=== PATIENT | female | born 1950 | race Caucasian/White ===

== ENCOUNTER 2017-03-17 13:03 | Observation (INO) ==
[2017-03-17] MEDS ORDERED: 0.9 % Sodium Chloride 1,000 ML IVC ONE (13:14)
--- NOTE | 2017-03-17 13:16 | Emergency Department Note ---
Disposition Clinical Impression: Intraoperative injury of vein, Axillary vein injury, Renal insufficiency, Dehydration, Hypotension, Diabetes mellitus, UTI (urinary tract infection) Disposition: Admitted As Inpatient Referrals: Garrett Judd DO [Primary Care Provider] - Forms: ED Satisfaction Letter General Adult HPI - General Chief complaint: ED Dizziness Stated complaint: Low BP Time Seen by Provider: 03/17/17 13:06 Source: patient Limitations: no limitations - History of Present Illness HPI Narrative: Extremity 6-year-old female was getting a breast biopsy in radiology, the patient's blood pressure dropped and she became diaphoretic and was poorly responsive. The patient is noted to be diabetic, Accu-Chek at that time did not show hypoglycemia. The patient was brought to the emergency department via radiology staff. The patient reports she was feeling well prior to the biopsy. She had no acute complaints and was in her usual state of health. The patient denies headache neck pain chest pain shortness of breath abdominal pain acute back pain slurred speech or difficulty moving the arms or legs independently. There is no history of skin rash urinary symptoms or any other concern. The patient feels completely well now apart from some right arm swelling and right breast area swelling.. She states she pretty much remembers the entire event. No seizure-like activity described. The radiologist was concerned because there was possible hematoma in the breast and/or right upper extremity. Her is been no coldness weakness numbness or blueness of the arms or legs. Pain Scale: 9 - Related Data Home Medications Medication Instructions Recorded Confirmed Amlodipine [Norvasc] 5 mg PO DAILY 12/07/16 03/17/17 Aspirin 81 mg PO DAILY 12/07/16 03/17/17 Atorvastatin [Lipitor] 40 mg PO HS 12/07/16 03/17/17 Lisinopril [Zestril] 40 mg PO DAILY 12/07/16 03/17/17 Metformin [Glucophage] 500 mg PO BIDWM 12/07/16 03/17/17 Omeprazole [PriLOSEC] 40 mg PO DAILY 12/07/16 03/17/17 Sertraline [Zoloft] 50 mg PO DAILY 12/07/16 03/17/17 Acetaminophen/Diphenhydramine 1 tab PO HS PRN 01/05/17 03/17/17 [Acetaminophen Pm Caplet] Allergies Allergy/AdvReac Type Severity Reaction Status Date / Time No Known Allergies Allergy Verified 03/17/17 15:27 All systems ED: reviewed and negative except as stated. Past Medical History - Past Medical History Medical history: Reports: CVA, diabetes, hypertension Psychiatric history: Reports: no psych history - Social History Smoking Status: Current every day smoker Smokeless Tobacco Status: No Alcohol use: Reports: none Drug use: Reports: none Physical Exam - General Limitations: no limitations General appearance: alert, in no apparent distress - Head Head exam: atraumatic, normocephalic, normal inspection - Eye Eye exam: Present: normal appearance, PERRL, EOMI - ENT ENT exam: normal exam, normal oropharynx, mucous membranes moist, TM's normal bilaterally, normal external ear exam - Neck Neck exam: Present: normal inspection, full ROM, trachea midline. Absent: tenderness - Chest Chest inspection: Present: symmetric chest wall rise. Absent: tenderness - Respiratory Respiratory exam: Present: normal lung sounds bilaterally. Absent: respiratory distress, accessory muscle use, prolonged expiratory phase - Cardiovascular Cardiovascular exam: Present: regular rate, normal rhythm, normal heart sounds - Abdominal Exam Abdominal exam: Present: soft, Non-Tender, normal bowel sounds. Absent: tenderness, distention, guarding, rebound, rigidity, pulsatile mass - Extremities Exam Extremities exam: Present: full ROM, normal capillary refill, other (All 4 extremities warm and well-perfused and supple. Mild edema in the humeral area, radial pulses are bounding and palpable. There is no evidence of acute bony or joint pathology or neurovascular or neuromuscular compromise.). Absent: tenderness, pedal edema, joint swelling, calf tenderness - Expanded Lower Extremity Exam Lower leg exam: Absent: Homans' sign Neurovascular/Tendon exam: Present: normal capillary refill. Absent: pulse deficit, motor deficit, sensory deficit, tendon deficit, extremity cold to touch , pallor - Back Exam Back exam: Present: normal inspection, full ROM. Absent: tenderness, CVA tenderness (R), CVA tenderness (L), vertebral tenderness - Neurological Exam Neurological exam: Present: alert, oriented X3, CN II-XII intact. Absent: motor sensory deficit - Psychiatric Psychiatric exam: Present: normal affect, normal mood - Skin Skin exam: Present: warm, dry, intact, normal color. Absent: rash, cyanosis, diaphoresis, erythema, pallor, mottled Course Vital Signs Temperature 97.6 F 05/04/17 13:06 Pulse Rate 86 03/17/17 13:06 Respiratory Rate 16 03/17/17 13:06 Blood Pressure 107/60 03/17/17 13:06 O2 Sat by Pulse Oximetry 99 03/17/17 13:06 Temperature 97.6 F 03/17/17 13:06 Pulse Rate 73 03/17/17 15:03 Respiratory Rate 16 03/17/17 15:03 Blood Pressure 123/63 03/17/17 15:03 O2 Sat by Pulse Oximetry 98 03/17/17 15:03 Oxygen Delivery Oxygen Delivery Room Air Medical Decision Making - MDM Narrative Medical decision making narrative: The patient had a hypotensive event which may have been vasovagal in nature, alternatively she could just simply be dehydrated secondary to nothing by mouth status since last night. Her CT studies indicate an axillary vein injury without active extravasation. No arterial injury identified. The patient appears to be stable. She was given fluids. The radiologist discussed the case with the interventional radiologist who did not recommend immediate hemostatic procedure. Based on the patient's hypotension, hematoma, apparent venous injury, I thought be appropriate to admit the patient the hospital for observation. We will admit the patient to the hospitalist service and recommended serial CBCs to ensure no significant persistent bleeding is demonstrated. The patient is agreeable. She is currently stable pending admission for further evaluation and management. Dr. Spangler/Vascular was consulted who will act as the performance management consultant, he recommends discontinuing aspirin. - Lab Data Lab results reviewed: Yes I reviewed the patient's lab results. Result diagrams: 03/17/17 13:51 03/17/17 13:51 Lab Results 03/17/17 03/17/17 03/17/17 Range/Units 13:34 13:51 13:51 WBC 12.8 H (4.3-11.1) K/mcL RBC 4.57 (3.82-4.97) M/mcL Hgb 13.1 (11.5-15.4) g/dL Hct 40.6 (35.3-44.9) % MCV 88.8 (83.0-100.0) fL MCH 28.7 (28.0-33.3) pg MCHC 32.3 (31.6-35.5) g/dL RDW 13.7 (11.5-14.5) % Plt Count 326 (140-400) K/mcL MPV 9.3 L (9.4-12.4) fL Immature Gran % 1.0 (0-4) % Seg Neutrophils % 66.3 % Lymphocytes % 24.0 % Monocytes % 5.0 % Eosinophils % 2.7 % Basophils % 1.0 % Neutrophils # 8.5 (1.6-8.9) K/mcL Lymphocytes # 3.1 (0.6-4.6) K/mcL Monocytes # 0.6 (0.0-1.3) K/mcL Eosinophils # 0.4 (0.0-0.6) K/mcL Basophils # 0.1 (0.0-0.2) K/mcL PT 10.9 (9.4-12.1) Seconds INR 1.0 APTT 30.1 (26.0-36.0) Seconds Sodium (136-145) mEq/L Potassium (3.5-4.5) mEq/L Chloride (98-109) mEq/L Carbon Dioxide (19-29) mEq/L BUN (7-20) mg/dL Creatinine (0.57-1.11) mg/dL Est GFR ( Amer) (> 60) Est GFR (Non-Af Amer) (> 60) BUN/Creatinine Ratio (6-26) Glucose (70-99) mg/dL Calculated Osmolality (280-300) Calcium (8.6-10.8) mg/dL Total Bilirubin (0.2-1.2) mg/dL Direct Bilirubin (0.0-0.5) mg/dL Indirect Bilirubin (0.0-1.2) mg/dL AST (5-34) Units/L ALT (0-55) Units/L Alkaline Phosphatase (38-126) Units/L Troponin I (0-0.03) ng/mL C-Reactive Protein (Less than 5) mg/L Serum Total Protein (6.0-8.3) g/dL Albumin (3.5-5.0) g/dL Globulin (2.4-3.5) g/dL Albumin/Globulin Ratio (1.1-2.2) Urine Color Yellow (Yellow) Urine Clarity Clear (Clear) Urine pH 6.5 (5.0-8.0) pH Units Ur Specific [place] 1.021 (1.010-1.025) Urine Protein 100 H (Neg-Trace) mg/dL Urine Glucose (UA) Normal (Normal) mg/dL Urine Ketones Negative (Negative) mg/dL Urine Blood Negative (Negative) Urine Nitrite Negative (Negative) Urine Bilirubin Negative (Negative) Urine Urobilinogen Normal (Normal) mg/dL Ur Leukocyte Esterase Small H (Negative) Urine Microscopic RBC 0-3 (0-3) per hpf Urine Microscopic WBC 5-15 H (0-3) per hpf Ur Squamous Epith Cells Many H (None-Few) per lpf Urine Bacteria Few (None-Few) per hpf Hyaline Casts None Seen (None-Few) per lpf Ur Culture Indicated? YES A (NO) 03/17/17 03/17/17 03/17/17 Range/Units 13:51 13:51 13:51 WBC (4.3-11.1) K/mcL RBC (3.82-4.97) M/mcL Hgb (11.5-15.4) g/dL Hct (35.3-44.9) % MCV (83.0-100.0) fL MCH (28.0-33.3) pg MCHC (31.6-35.5) g/dL RDW (11.5-14.5) % Plt Count (140-400) K/mcL MPV (9.4-12.4) fL Immature Gran % (0-4) % Seg Neutrophils % % Lymphocytes % % Monocytes % % Eosinophils % % Basophils % % Neutrophils # (1.6-8.9) K/mcL Lymphocytes # (0.6-4.6) K/mcL Monocytes # (0.0-1.3) K/mcL Eosinophils # (0.0-0.6) K/mcL Basophils # (0.0-0.2) K/mcL PT (9.4-12.1) Seconds INR APTT (26.0-36.0) Seconds Sodium 140 (136-145) mEq/L Potassium 4.2 (3.5-4.5) mEq/L Chloride 109 (98-109) mEq/L Carbon Dioxide 24 (19-29) mEq/L BUN 28 H (7-20) mg/dL Creatinine 1.33 H (0.57-1.11) mg/dL Est GFR ( Amer) 49 L (> 60) Est GFR (Non-Af Amer) 40 L (> 60) BUN/Creatinine Ratio 21 (6-26) Glucose 155 H (70-99) mg/dL Calculated Osmolality 299 (280-300) Calcium 9.3 (8.6-10.8) mg/dL Total Bilirubin 0.4 (0.2-1.2) mg/dL Direct Bilirubin 0.2 (0.0-0.5) mg/dL Indirect Bilirubin 0.2 (0.0-1.2) mg/dL AST 14 (5-34) Units/L ALT 26 (0-55) Units/L Alkaline Phosphatase 93 (38-126) Units/L Troponin I 0.01 (0-0.03) ng/mL C-Reactive Protein 3 (Less than 5) mg/L Serum Total Protein 6.6 (6.0-8.3) g/dL Albumin 3.4 L (3.5-5.0) g/dL Globulin 3.2 (2.4-3.5) g/dL Albumin/Globulin Ratio 1.1 (1.1-2.2) Urine Color (Yellow) Urine Clarity (Clear) Urine pH (5.0-8.0) pH Units Ur Specific [place] (1.010-1.025) Urine Protein (Neg-Trace) mg/dL Urine Glucose (UA) (Normal) mg/dL Urine Ketones (Negative) mg/dL Urine Blood (Negative) Urine Nitrite (Negative) Urine Bilirubin (Negative) Urine Urobilinogen (Normal) mg/dL Ur Leukocyte Esterase (Negative) Urine Microscopic RBC (0-3) per hpf Urine Microscopic WBC (0-3) per hpf Ur Squamous Epith Cells (None-Few) per lpf Urine Bacteria (None-Few) per hpf Hyaline Casts (None-Few) per lpf Ur Culture Indicated? (NO) - Radiology Data Radiology results reviewed: Yes I reviewed the patient's radiology results.
[2017-03-17 14:05] LABS: Basophils # 0.1 K/mcL (0.0-0.2); Eosinophils # 0.4 K/mcL (0.0-0.6); Eosinophils % 2.7 %; Hematocrit 40.6 % (35.3-44.9); Hemoglobin 13.1 g/dL (11.5-15.4); Lymphocytes # 3.1 K/mcL (0.6-4.6); Mean Corpuscular HGB Conc 32.3 g/dL (31.6-35.5); Mean Corpuscular Hemoglobin 28.7 pg (28.0-33.3); Mean Corpuscular Volume 88.8 fL (83.0-100.0); Mean Platelet Volume 9.3 fL (9.4-12.4); Monocytes # 0.6 K/mcL (0.0-1.3); Neutrophils # 8.5 K/mcL (1.6-8.9); Platelet Count 326 K/mcL (140-400); Red Blood Count 4.57 M/mcL (3.82-4.97); Red Cell Distribution Width 13.7 % (11.5-14.5); Segmented Neutrophils % 66.3 %
[2017-03-17 14:11] LABS: Prothrombin Time 10.9 Seconds (9.4-12.1)
[2017-03-17 14:13] LABS: Activated Partial Thrombo Time 30.1 Seconds (26.0-36.0)
[2017-03-17 14:16] LABS: Albumin 3.4 g/dL (3.5-5.0); Albumin/Globulin Ratio 1.1 (1.1-2.2); Bilirubin,Direct 0.2 mg/dL (0.0-0.5); Bilirubin,Indirect 0.2 mg/dL (0.0-1.2); Bilirubin,Total 0.4 mg/dL (0.2-1.2); Calcium 9.3 mg/dL (8.6-10.8); Globulin 3.2 g/dL (2.4-3.5); Potassium 4.2 mEq/L (3.5-4.5); Total Protein 6.6 g/dL (6.0-8.3)
[2017-03-17 15:11] LABS: Bilirubin,Urine Negative (Negative); Blood,Urine Negative (Negative); Clarity,Urine Clear (Clear); Color,Urine Yellow (Yellow); Glucose,Urine (UA) Normal (Normal); Ketones,Urine Negative (Negative); Leukocyte Esterase,Urine Small (Negative); Nitrite,Urine Negative (Negative); PH,Urine 6.5 pH Units (5.0-8.0); Protein,Urine 100 mg/dL (Neg-Trace); Specific Gravity,Urine 1.021 (1.010-1.025); Urobilinogen,Urine Normal (Normal)
[2017-03-17 15:14] LABS: Bacteria,Urine Few per hpf (None-Few); Hyaline Casts,Urine None Seen per lpf (None-Few); RBC,Urine 0-3 per hpf (0-3); Squamous Epithelial Cell,Urine Many per lpf (None-Few)
[2017-03-17] MEDS ORDERED: *HR* HYDROcodone/Acet 5/325 mg TABLET PO ONE (18:42)
--- NOTE | 2017-03-17 18:50 | Vascular/Endovasc Consult Note ---
Date of Encounter: 03/17/17 Time of Encounter: 18:25 Assessment and Plan (1) Axillary vein injury Current Visit: Yes Status: Acute The patient underwent a breast biopsy which was complicated by a right axillary vein injury with hematoma formation. The patient is now hemodynamically stable and comfortable. Exam reveals right axillary and chest ecchymosis with hematoma formation. Recommend bedrest tonight. recheck hemoglobin. Hold Aspirin and any anticaogulation. Will continue to follow patient. Qualifiers: Encounter type: initial encounter Laterality: right Qualified Code(s): S45.201A - Unspecified injury of axillary or brachial vein, right side, initial encounter (2) Essential hypertension Current Visit: Yes Status: Chronic (3) Diabetes mellitus Current Visit: Yes Status: Chronic She was counseled regarding atherosclerotic risk factor reduction. Qualifiers: Diabetes mellitus type: type 2 Diabetes mellitus complication status: with unspecified complications Diabetes mellitus mcfp insulin use: without intermodal dispatcher use Qualified Code(s): E11.8 - Type 2 diabetes mellitus with unspecified complications (4) Tobacco abuse Current Visit: Yes Status: Chronic She was counseled regarding smoking cessation. - History of Present Illness Consult date: 03/17/17 Requesting physician: Kenneth Castañeda Consult reason: Right axillary vein injury Chief complaint: Right axillary hematoma History of present illness: Ms. Gomez is a 66 year old female who was found to have a right breast mass. SHe has a history of diabetes and hypertension. She underwent a right breast biopsy and developed significant pain and swelling. She underwent a CT and was found to have a large hematoma with possible axillary vein injury. The patient was admitted and vascular surgery was consulted for further evaluation. The patient reports that her arm and chest are sore, but the pain is stable. She denies any increased swelling since admission. She denies any chest pain or shortness of breath. Past Med Surg Social Fam HX - Past Medical History Medical history: CVA, diabetes, hypertension Psychiatric history: no psych history - Social History Smoking Status: Current every day smoker Smokeless Tobacco Status: No Alcohol use: none Drug use: none - Family History Mother Living Status: Age at : 65 Cause of : diabetic coma Hx Family Endocrine Disorder: Yes Hx Family Medical Disorders: Yes Medications and Allergies Amlodipine [Norvasc] 5 mg PO DAILY 12/07/16 [History] Aspirin 81 mg PO DAILY 12/07/16 [History] Atorvastatin [Lipitor] 40 mg PO HS 12/07/16 [History] Lisinopril [Zestril] 40 mg PO DAILY 12/07/16 [History] Metformin [Glucophage] 500 mg PO BIDWM 12/07/16 [History] Omeprazole [PriLOSEC] 40 mg PO DAILY 12/07/16 [History] Sertraline [Zoloft] 50 mg PO DAILY 12/07/16 [History] Acetaminophen/Diphenhydramine [Acetaminophen Pm Caplet] 1 tab PO HS PRN [History] Allergies No Known Allergies Allergy (Verified 03/17/17 15:27) All Systems Review: A 10-system review of systems was performed and is negative for pertinent findings except as documented above in the HPI. Exam Vital Signs, Last 4 Hours Temp Pulse Resp BP Pulse Ox 03/17/17 17:50 97.6 F 81 22 129/76 96 03/17/17 17:17 16 140/77 General: Present: Conversant, No Apparent Distress, Well developed HEENT: Present: Atraumatic, Trachea midline, Pupils equal Neck: Absent: JVD, Lymphadenopathy, Left Carotid bruit, Right Carotid bruit Cardiac: Present: Reg Rate and Rhythm, Normal S1 and S2 Lungs: Present: Normal Breath Sounds, No Wheeze, Rales, Rhonchi Neuro: Present: Alert and responsive, No focal deficits noted, Motor nerves grossly intact, Sensory nerves grossly intact Abdomen: Present: Soft, Non-tender. Absent: Masses Vascular: Present: Normal capillary refill, Pulse, normal, Edema, Other (Right axillary and chest wall ecchymosis with hematoma). Absent: Cyanosis Consult Discharge Plan - Plan Referrals: Garrett Judd DO [Primary Care Provider] - 03/28/17 2:30 pm
--- NOTE | 2017-03-17 20:23 | Internal Med History&Physical ---
Date of Encounter: 03/17/17 Time of Encounter: 20:14 Assessment and Plan (1) Axillary vein injury Current visit: Yes Status: Acute Patient has extravasation of blood due to axillary vein injury. Swelling in right upper arm. No signs of acute ischemia. Distal pulses and capillary circulation intact. No evidence of compartment syndrome. Follow H and H. DC aspirin. Vascular surgery have already evaluated the patient. Qualifiers: Encounter type: initial encounter Laterality: right Qualified Code(s): S45.201A - Unspecified injury of axillary or brachial vein, right side, initial encounter (2) Hypotension Current visit: Yes Status: Acute Likely vasovagal from pain. Hydrate currently normotensive. Qualifiers: Qualified Code(s): I95.9 - Hypotension, unspecified (3) Diabetes mellitus Current visit: Yes Status: Acute SSI Qualifiers: Qualified Code(s): E11.9 - Type 2 diabetes mellitus without complications (4) Urinary tract infection Current visit: Yes Status: Acute Urine sample is contaminated. Check urine culture. Hold off antibiotics. Qualifiers: Qualified Code(s): N39.0 - Urinary tract infection, site not specified (5) ELÍAS (acute kidney injury) Current visit: Yes Status: Acute Hydration Internal Medicine - H&P: HPI Chief complaint: lightheadedness History of present illness: Ms. Gomez is a 66 year old female who was having a biopsy for breast mass today developed lightheadedness during the procedure done by interventional radiology. Patient had injury of the right axillary vein and had a drop in her BP and she felt lightheaded. No syncope. She had swelling and pain in the right axillary area. Still has intact sensation and movement. Denies any coldness or significant swelling of the arm. She became hemodynamically stable shortly afterwards. CT scan showed significant extravasation int he right axillary area. Patient is on aspirin 81 mg but no other antiplatelet or anticoagulant medications. NO chest pain. No fever or chills Past Med Surg Social Fam HX - Past Medical History Medical history: CVA, diabetes, hypertension Psychiatric history: no psych history - Social History Smoking Status: Current every day smoker Smokeless Tobacco Status: No Alcohol use: none Drug use: none - Family History Mother Living Status: Age at : 65 Cause of : diabetic coma Hx Family Endocrine Disorder: Yes Hx Family Medical Disorders: Yes Internal Medicine - H&P: Meds Amlodipine [Norvasc] 5 mg PO DAILY 01/24/17 [History] Aspirin 81 mg PO DAILY 12/07/16 [History] Atorvastatin [Lipitor] 40 mg PO HS 12/07/16 [History] Lisinopril [Zestril] 40 mg PO DAILY 12/07/16 [History] Metformin [Glucophage] 500 mg PO BIDWM 12/07/16 [History] Omeprazole [PriLOSEC] 40 mg PO DAILY 12/07/16 [History] Sertraline [Zoloft] 50 mg PO DAILY 12/07/16 [History] Acetaminophen/Diphenhydramine [Acetaminophen Pm Caplet] 1 tab PO HS PRN [History] Allergies No Known Allergies Allergy (Verified 03/17/17 15:27) All Systems PM: A 10-system review of systems was performed and is negative for pertinent findings except as documented above in the HPI. Review of systems: 10 point ROS is negative except for HPI - Constitutional Vitals: Temp Pulse Resp BP Pulse Ox 97.6 F 81 22 129/76 96 03/17/17 17:50 03/17/17 17:50 03/17/17 17:50 03/17/17 17:50 03/17/17 17:50 Exam: general: patient is A and O not in distress Cardiac: Normal S1, S2, no additional sounds or murmurs Chest: Clear Right upper extremity: Swelling in upper right arm compared to left. Arm not tense. Distal pulsations and capillary circulation are intact. LE: lax calf muscles Internal Med - H&P Results - Labs CBC & Chem 7: 03/17/17 13:51 03/17/17 13:51
[2017-03-17] MEDS: 0.9 % Sodium Chloride 1,000 ML IVC SCH (21:58)
[2017-03-18] MEDS: *HR* Morphine 2 MG/ML SYRINGE IVP PRN ×3 (02:57→22:12)
[2017-03-18 05:57] LABS: Basophils # 0.1 K/mcL (0.0-0.2); Basophils % 0.9 %; Eosinophils # 0.3 K/mcL (0.0-0.6); Eosinophils % 2.6 %; Hematocrit 33.3 % (35.3-44.9); Immature Granulocytes % 0.7 % (0-4); Lymphocytes # 3.3 K/mcL (0.6-4.6); Lymphocytes % 28.1 %; Mean Corpuscular HGB Conc 32.4 g/dL (31.6-35.5); Mean Corpuscular Volume 89.3 fL (83.0-100.0); Mean Platelet Volume 9.5 fL (9.4-12.4); Monocytes # 0.7 K/mcL (0.0-1.3); Monocytes % 5.8 %; Neutrophils # 7.2 K/mcL (1.6-8.9); Platelet Count 273 K/mcL (140-400); Red Blood Count 3.73 M/mcL (3.82-4.97); Segmented Neutrophils % 61.9 %
[2017-03-18 05:58] LABS: Hemoglobin 10.8 g/dL (11.5-15.4)
[2017-03-18 06:15] LABS: BUN/Creatinine Ratio 25 (6-26); Blood Urea Nitrogen 20 mg/dL (7-20); Calcium 8.4 mg/dL (8.6-10.8); Carbon Dioxide 22 mEq/L (19-29); Chloride 112 mEq/L (98-109); Glucose 94 mg/dL (70-99); Magnesium 1.7 mg/dL (1.6-2.6); Osmolality,Calculated 290 (280-300); Potassium 3.9 mEq/L (3.5-4.5); Sodium 139 mEq/L (136-145); eGFR For African Americans > 60 (> 60); eGFR For Non-African Americans > 60 (> 60)
[2017-03-18] MEDS ORDERED: amLODIPine 5 MG TABLET PO SCH (09:00)
[2017-03-18] MEDS: 0.9 % Sodium Chloride 1,000 ML IVC SCH (10:14)
[2017-03-18] MEDS: Insulin LISPRO 300 UNITS/3 ML VIAL SQ SCH ×3 (10:15→17:57)
--- NOTE | 2017-03-18 13:53 | Internal Med Progress Note ---
<Aba Lynne - Last Filed: 03/18/17 14:42> Date of Encounter: 03/18/17 Time of Encounter: 10:30 - Assessment and plan (1) Axillary vein injury Current Visit: Yes Status: Acute Assessment and plan: patient suffered injury to right axillary vein during breast mass biopsy. Upper extremity CT shoed subcutaneous pronounced edema through soft tissues of left axilla along chest wall involving left pec minor, large hematoma. there was irregularity of right axillary vein seen. Plan: appreciate vascular surgery recommendations. patient is stable now. will re check H/H q12 hours. Qualifiers: Encounter type: initial encounter Laterality: right Qualified Code(s): S45.201A - Unspecified injury of axillary or brachial vein, right side, initial encounter (2) Hypotension Current Visit: Yes Status: Resolved Assessment and plan: resolved with fluids. continue to monitor. Qualifiers: Hypotension type: unspecified hypotension type Qualified Code(s): I95.9 - Hypotension, unspecified (3) Diabetes mellitus Current Visit: Yes Status: Acute Assessment and plan: ADA diet ACHS accuchecks low dose sliding scale. Qualifiers: Diabetes mellitus type: type 2 Diabetes mellitus complication status: with unspecified complications Diabetes mellitus gauntlet pairer insulin use: without mcfp use Qualified Code(s): E11.8 - Type 2 diabetes mellitus with unspecified complications (4) UTI (urinary tract infection) Current Visit: Yes Status: Acute Assessment and plan: urinalysis shows infection patient is asymptomatic, no antibiotics at this time. Qualifiers: Urinary tract infection type: site unspecified Hematuria presence: without hematuria Qualified Code(s): N39.0 - Urinary tract infection, site not specified (5) ELÍAS (acute kidney injury) Current Visit: Yes Status: Resolved Assessment and plan: resolved with fluids. continue to monitor. (6) DVT prophylaxis Current Visit: Yes Status: Acute Assessment and plan: EPCD - Subjective Interval history: 66 year old female evaluated at bedside. patient denies nausea, vomiting, diarrhea, fever, chills. she reports 8/10 pain. she denies hemoptysis, blood in stool, hematuria, dizziness, lightheadedness, shortness of breath. besides her pain from her hematoma, she denies further complaints today. - Constitutional Vitals: Temp Pulse Resp BP Pulse Ox 98.3 F 71 16 150/71 92 03/18/17 11:30 03/18/17 11:30 03/18/17 11:30 03/18/17 11:30 03/18/17 11:30 General appearance: Present: mild distress, A&O X 3, answers questions appropriately - Head Head exam: Present: atraumatic, normocephalic - Neck Neck exam general surgery: Present: supple, trachea midline - Respiratory Respiratory exam: Present: rhonchi - Cardiovascular Cardiovascular exam: Present: RRR, +S1, +S2 - GI/Abdominal GI/Abdominal exam: Present: normal bowel sounds, soft. Absent: distended, tenderness - Extremities Exam Extremities exam: Absent: cyanotic, pedal edema - Neurological Exam Neurological exam: Present: alert, oriented X3, no focal deficits - Psychiatric Psychiatric exam: Present: normal affect, normal mood - Skin Additional comments: large hematoma present in right mid axillary area, tender to palpation. Internal Medicine: Result - Labs CBC & Chem 7: 03/18/17 04:54 03/18/17 04:54 Labs: Short CBC 03/18/17 Range/Units 04:54 WBC 11.6 H (4.3-11.1) K/mcL Hgb 10.8 L D (11.5-15.4) g/dL Hct 33.3 L (35.3-44.9) % Plt Count 273 (140-400) K/mcL Neutrophils # 7.2 (1.6-8.9) K/mcL BMP 03/18/17 04:54 Sodium 139 Potassium 3.9 Chloride 112 H Carbon Dioxide 22 BUN 20 Creatinine 0.81 Glucose 94 Calcium 8.4 L - ABG Interpretation ABG results: PT/INR, D-dimer PT 10.9 Seconds (9.4-12.1) 03/17/17 13:51 - VTE Documentation of Mechanical Device: Intermittent pneumatic compression device Consult Discharge Plan - Plan Referrals: Garrett Judd DO [Primary Care Provider] - 03/28/17 2:30 pm <Brian Knapp - Last Filed: 03/18/17 17:15> Date of Encounter: 03/18/17 - Constitutional Vitals: Temp Pulse Resp BP Pulse Ox 98.5 F 74 16 147/76 93 03/18/17 15:27 03/18/17 15:27 03/18/17 15:27 03/18/17 15:27 03/18/17 15:27 Internal Medicine: Result - Labs CBC & Chem 7: 03/18/17 16:35 03/18/17 04:54 Labs: Short CBC 03/18/17 03/18/17 Range/Units 04:54 16:35 WBC 11.6 H 10.9 (4.3-11.1) K/mcL Hgb 10.8 L D 10.9 L (11.5-15.4) g/dL Hct 33.3 L 34.5 L (35.3-44.9) % Plt Count 273 269 (140-400) K/mcL Neutrophils # 7.2 6.7 (1.6-8.9) K/mcL BMP 03/18/17 04:54 Sodium 139 Potassium 3.9 Chloride 112 H Carbon Dioxide 22 BUN 20 Creatinine 0.81 Glucose 94 Calcium 8.4 L - ABG Interpretation ABG results: PT/INR, D-dimer PT 10.9 Seconds (9.4-12.1) 03/17/17 13:51 - Attending Attestation I examined this patient and my medical decision-making was reviewed with the SUPPLIER QUALITY ENGINEER/PA/Advanced Practice Nurse/Resident Physician. I agree with the documented findings, disposition and treatment plan as described except to the extent set forth below.
[2017-03-18] MEDS ORDERED: Dextrose Gel 15 GM PO PRN ×2 (14:48)
[2017-03-18] MEDS ORDERED: *HR* Dextrose 50 % in Water (Syg) 50 ML SYRINGE IVP PRN (14:48)
[2017-03-18] MEDS ORDERED: D5% in Water 1,000 ML IVC PRN (14:48)
[2017-03-18 16:44] LABS: Basophils # 0.1 K/mcL (0.0-0.2); Basophils % 1.1 %; Eosinophils # 0.3 K/mcL (0.0-0.6); Eosinophils % 3.1 %; Hematocrit 34.5 % (35.3-44.9); Hemoglobin 10.9 g/dL (11.5-15.4); Immature Granulocytes % 0.8 % (0-4); Lymphocytes % 27.6 %; Mean Corpuscular HGB Conc 31.6 g/dL (31.6-35.5); Mean Corpuscular Hemoglobin 27.9 pg (28.0-33.3); Mean Corpuscular Volume 88.2 fL (83.0-100.0); Mean Platelet Volume 8.8 fL (9.4-12.4); Monocytes # 0.6 K/mcL (0.0-1.3); Monocytes % 5.3 %; Neutrophils # 6.7 K/mcL (1.6-8.9); Platelet Count 269 K/mcL (140-400); Red Blood Count 3.91 M/mcL (3.82-4.97); Red Cell Distribution Width 13.9 % (11.5-14.5); Segmented Neutrophils % 62.1 %
--- NOTE | 2017-03-18 17:00 | Vascular/[facility] Progress Note ---
Date of Encounter: 03/18/17 Time of Encounter: 14:25 - Assessment and plan (1) Axillary vein injury Status: Acute The patient underwent a breast biopsy which was complicated by a right axillary vein injury with hematoma formation on 03/17/17. She remains hemodynamically stable and her hemoglobin has decreased since yesterday, but remains stable this afternoon. Her clinical exam remains unchanged since yesterday. She has no evidence of ongoing blood loss. She was discussed with Dr. Knapp. He states that he will monitor her overnight. Discharge is likely Vascular surgery will signoff given no evidence of ongoing bleeding. Reconsult if further issues arise. Qualifiers: Encounter type: initial encounter Laterality: right Qualified Code(s): S45.201A - Unspecified injury of axillary or brachial vein, right side, initial encounter (2) Essential hypertension Status: Chronic (3) Diabetes mellitus Status: Chronic She was counseled regarding atherosclerotic risk factor reduction. Qualifiers: Diabetes mellitus type: type 2 Diabetes mellitus complication status: with unspecified complications Diabetes mellitus director long term care insulin use: without director long term care use Qualified Code(s): E11.8 - Type 2 diabetes mellitus with unspecified complications (4) Tobacco abuse Status: Chronic She was counseled regarding smoking cessation. - Subjective Interval history: The patient reports decreased pain in her axiala and chest today. She denies any acute issues overnight. She denies any worsening chest pain or any shortness of breath. Vital Signs, Last 4 Hours Temp Pulse Resp BP Pulse Ox 03/18/17 15:27 98.5 F 74 16 147/76 93 - Physical Examination General: Present: Conversant, No Apparent Distress HEENT: Present: Atraumatic, Pupils equal Neck: Absent: JVD Cardiac: Present: Reg Rate and Rhythm Lungs: Present: Normal Breath Sounds, No Wheeze, Rales, Rhonchi Neuro: Present: Alert and responsive, No focal deficits noted, Motor nerves grossly intact Vascular: Present: Normal capillary refill, Pulse, normal. Absent: Cyanosis, Edema Abdomen: Present: Soft Skin: Present: Other (ecchymosis, and tenderness at right lateral chest and axilla, hematoma appears stable). Absent: No rashes noted on visualized skin - VTE Documentation of Mechanical Device: Intermittent pneumatic compression device Results 03/19/17 05:48 03/19/17 05:48 Lab Results, Last 24 hours 0503/18/17 03/18/17 04:54 04:54 16:35 WBC 11.6 H 10.9 Hgb 10.8 L D 10.9 L Hct 33.3 L 34.5 L Plt Count 273 269 Sodium 139 Potassium 3.9 Chloride 112 H Carbon Dioxide 22 BUN 20 Creatinine 0.81 Glucose 94 Calcium 8.4 L Magnesium 1.7 Consult Discharge Plan - Plan Instructions: Urinary Tract Infection in Women (DC), Peripheral Vascular Disorders (DC), Chronic Hypertension (DC) Referrals: Nikita Spangler MD [Partnered Physician] - Garrett Judd DO [Primary Care Provider] - 03/28/17 2:30 pm
[2017-03-18] MEDS ORDERED: Insulin LISPRO 300 UNITS/3 ML VIAL SQ SCH (21:00)
[2017-03-19] MEDS: *HR* Morphine 2 MG/ML SYRINGE IVP PRN ×2 (02:44→09:20)
[2017-03-19 06:20] LABS: Basophils # 0.1 K/mcL (0.0-0.2); Eosinophils # 0.4 K/mcL (0.0-0.6); Eosinophils % 3.5 %; Hematocrit 32.4 % (35.3-44.9); Hemoglobin 10.4 g/dL (11.5-15.4); Immature Granulocytes % 0.7 % (0-4); Lymphocytes # 2.8 K/mcL (0.6-4.6); Lymphocytes % 26.7 %; Mean Corpuscular HGB Conc 32.1 g/dL (31.6-35.5); Mean Corpuscular Hemoglobin 28.1 pg (28.0-33.3); Mean Corpuscular Volume 87.6 fL (83.0-100.0); Mean Platelet Volume 8.9 fL (9.4-12.4); Monocytes # 0.7 K/mcL (0.0-1.3); Monocytes % 6.9 %; Neutrophils # 6.5 K/mcL (1.6-8.9); Platelet Count 283 K/mcL (140-400); Red Cell Distribution Width 13.7 % (11.5-14.5); Segmented Neutrophils % 61.2 %
[2017-03-19 06:36] LABS: BUN/Creatinine Ratio 18 (6-26); Blood Urea Nitrogen 16 mg/dL (7-20); Calcium 8.9 mg/dL (8.6-10.8); Carbon Dioxide 23 mEq/L (19-29); Chloride 108 mEq/L (98-109); Glucose 105 mg/dL (70-99); Osmolality,Calculated 286 (280-300); Potassium 3.6 mEq/L (3.5-4.5); Sodium 137 mEq/L (136-145); eGFR For African Americans > 60 (> 60); eGFR For Non-African Americans > 60 (> 60)
[2017-03-19] MEDS: Insulin LISPRO 300 UNITS/3 ML VIAL SQ SCH ×2 (08:21→11:51)
[2017-03-19 11:55] VITALS: BP 158/74
--- NOTE | 2017-03-19 12:53 | Discharge Summary ---
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 Qualified Code(s): E11.8 - Type 2 diabetes mellitus with unspecified complications (4) Essential hypertension Priority: Secondary Status: Chronic (5) DVT prophylaxis Priority: Secondary Status: Acute - Discharge Medications Home Medications: Amlodipine [Norvasc] 5 mg PO DAILY 12/07/16 [History] Aspirin 81 mg PO DAILY 12/07/16 [History] Atorvastatin [Lipitor] 40 mg PO HS 12/07/16 [History] Lisinopril [Zestril] 40 mg PO DAILY 12/07/16 [History] Metformin [Glucophage] 500 mg PO BIDWM 12/07/16 [History] Omeprazole [PriLOSEC] 40 mg PO DAILY 12/07/16 [History] Sertraline [Zoloft] 50 mg PO DAILY 12/07/16 [History] Acetaminophen/Diphenhydramine [Acetaminophen Pm Caplet] 1 tab PO HS PRN [History] Allergies/Adverse Reactions: Allergies No Known Allergies Allergy (Verified 03/17/17 15:27) Date of admission: 03/17/17 16:49 Primary care physician: Garrett Judd DO Discharging clinician: Brian Knapp - Patient Status Disposition: Home, Self-Care Condition: Fair Functional capacity at discharge: independent ambulation Overall status at discharge: patient is progressing back to baseline - Discharge Instructions Follow Up With: Garrett Judd DO [Primary Care Provider] - 03/28/17 2:30 pm Nikita Spangler MD [Partnered Physician] - - Diet and Activity Activity: increase activity as tolerated Diet: low fat, low cholesterol, low salt diet Interval History: Ms. Gomez is a 66 year old female who was having a biopsy for breast mass today developed lightheadedness during the procedure done by interventional radiology. Patient had injury of the right axillary vein and had a drop in her BP and she felt lightheaded. No syncope. She had swelling and pain in the right axillary area. Still has intact sensation and movement. Denies any coldness or significant swelling of the arm. She became hemodynamically stable shortly afterwards. CT scan showed significant extravasation int he right axillary area. Patient is on aspirin 81 mg but no other antiplatelet or anticoagulant medications. NO chest pain. No fever or chills Hospital course: Patient was hospitalized. She was evaluated by vascular surgery. Patient was hemodynamically stable. Noted that patient has a right-sided axillary/chest ecchymosis and hematoma formation. Vascular surgery recommended check serial hemoglobin/hematocrit, stop anticoagulation and close monitoring. Patient's hemoglobin and hematocrit is stable. Patient was again reevaluated by vascular surgery. As per vascular surgery patient is stable and vascular surgery signed off. Plan: Patient can go home. Follow-up with primary care. Follow-up with vascular surgery if necessary when necessary All questions answered. - Time Spent with Patient Total time spent providing and/or coordinating discharge services: - Constitutional Vitals: Temp Pulse Resp BP Pulse Ox 98.0 F 87 16 158/74 93 03/19/17 11:54 03/19/17 11:54 03/19/17 11:54 03/19/17 11:54 03/19/17 11:54 General appearance: Present: mild distress, A&O X 3, answers questions appropriately - Head Head exam: Present: atraumatic, normocephalic - Eye Eye exam: Present: PERRL, conjuntiva pink, sclera anicteric Pupils: Present: PERRL - Neck Neck exam general surgery: Present: supple, trachea midline. Absent: lymphadenopathy - Respiratory Respiratory exam: Present: CTAB. Absent: accessory muscle use, rales, rhonchi, wheezes - Cardiovascular Cardiovascular exam: Present: RRR, +S1, +S2. Absent: diastolic murmur, gallop, rubs, systolic murmur - GI/Abdominal GI/Abdominal exam: Present: normal bowel sounds, soft, no peritoneal signs. Absent: distended, tenderness - Extremities Exam Extremities exam: Present: warm, radial pulses palpable and symetrical. Absent : calf tenderness, cyanotic, pedal edema - Neurological Exam Neurological exam: Present: CN II-XII intact, oriented X3, no focal deficits. Absent: pronater drift, facial droop, speech deficit - Skin Skin exam: Present: dry, intact - VTE Documentation of Mechanical Device: Intermittent pneumatic compression device
== END 2017-03-19 16:00 | disposition home or self-care (01) ==
LOC: EMEROO 13:03 → 2NENU 13:03
PROVIDERS: ADMIT Hospitalist; ATTEND Internal Medicine

== ENCOUNTER 2018-08-12 18:35 | Inpatient (IN) ==
--- NOTE | 2018-08-12 18:49 | Emergency Department Note ---
Disposition Clinical Impression: Septic shock, Acute kidney injury, Elevated lactic acid level CAP (community acquired pneumonia) Qualifiers: Laterality: unspecified laterality Qualified Code(s): J18.9 - Pneumonia, unspecified organism Falls Qualifiers: Encounter type: initial encounter Qualified Code(s): W19.XXXA - Unspecified fall, initial encounter Disposition: Admitted As Inpatient Condition: Fair Time of Disposition: 19:53 General Adult HPI - General Stated complaint: hyperglycemia Time Seen by Provider: 08/12/18 18:37 Nursing Notes Reviewed: Yes Vital Signs Reviewed: Yes - History of Present Illness HPI Narrative: 67-year-old female presents from home via EMS for evaluation. Patient called her oncologist today with pain in her right axilla. Her oncologist advised her to call EMS; the reason she was advised to call EMS is unknown to the patient. In route, EMS notes the patient's blood glucose was in the 300s. She typically runs in the 120s. On presentation, patient notes he has a pain in the back of her neck. She states this occurred while falling last night and she had the edge of her tub at the back of her head. She fell 3 times last night. She reasons that the cause was just weakness. She denies any focal weakness. 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 Patient underwent a short round of radiation which she voluntarily discontinued and declines chemotherapy. ROS: Positive: As above Negative: Fever, chills, nausea, vomiting, chest pain, palpitations, diaphoresis , abdominal pain, changes in bowel or bladder habits. - Related Data Home Medications Medication Instructions Recorded Confirmed Lisinopril [Zestril] 40 mg PO DAILY 12/07/16 04/03/18 amLODIPine [Norvasc] 5 mg PO DAILY 12/07/16 04/03/18 metFORMIN [Glucophage] 500 mg PO BIDWM 12/07/16 04/03/18 Naproxen [Naprosyn] 1 tab PO BID PRN 03/29/17 04/03/18 Rizatriptan Benzoate [Maxalt] 5 mg PO DAILY 05/31/17 04/03/18 Rosuvastatin Calcium [Crestor] 40 mg PO DAILY 05/31/17 04/03/18 Previous Rx's Medication Instructions Recorded Calcium Carbonate/Vitamin D3 2 each PO DAILY #60 tablet 04/01/17 [Calcium 500 + Vit D Caplet] Acetaminophen [Tylenol] 325 mg PO TID PRN #60 tablet 11/10/17 Anastrozole [Arimidex] 1 mg PO DAILY #90 tablet 11/10/17 Omeprazole [PriLOSEC] 40 mg PO DAILY #30 capsule. 11/10/17 Allergies Allergy/AdvReac Type Severity Reaction Status Date / Time No Known Allergies Allergy Verified 02/09/18 09:30 All systems ED: reviewed and negative except as stated. Review of Systems: As Per HPI Past Medical History - Past Medical History Medical history: Reports: cancer, CVA, diabetes, hypertension Psychiatric history: Reports: no psych history - Social History Smoking Status: Current every day smoker Smokeless Tobacco Status: No Alcohol use: Reports: none Drug use: Reports: none Physical Exam Vital Signs Reviewed General: Patient is alert, oriented, and in no acute distress. Head: atraumatic, normocephalic Eye: normal appearance, PERRL, EOMI, no scleral icterus, no conjunctival injection ENT: mucous membranes moist, normal external ear exam Neck: normal inspection, trachea midline, full ROM Chest: normal inspection, symmetric chest rise Respiratory: Poor respiratory effort. Prolonged ventilatory phase. Bilateral breath sounds have diffuse coarse crackles. Cardiovascular: Regular rate and rhythm. No clicks, rubs, gallops, or murmors. Normal heart sounds. Abdomen: Bowel sounds present normoactive x-4 quadrants. Abdomen is soft, nondistended, and nontender. No guarding or rebound. Musculoskeletal: Spontaneously moving all extremities. Skin: warm, dry, intact. Neuro: Alert and oriented x4. Sensation light touch intact and equal bilateral upper and lower extremities. Strength 5/5 and equal bilateral upper and lower extremities. No limb drift. No facial asymmetry. No slurring of speech. Radial nerve II through XII intact. Psych: Patient's affect is appropriate for situation. Course Course Narrative: During examination, patient has dry cough. Afebrile. Concern for pneumonia. Also concern for alternate possible infection or electrolyte disturbance given her falls. Will CT head and C-spine. Patient is nothing by mouth while workup is pending. Patient and family at bedside are frustrated the patient is not allowed to have fluids by mouth. Will allow ice chips. XR shows multifocal pneumonia. EKG is unremarkable. Serum troponin unremarkable. Serum hematology shows marked leukocytosis with white count of 29. Serum creatinine is elevated indicating acute kidney injury. Lactic acidosis is elevated at 3.2. On initial presentation, patient did not meet SIRS criteria based on intake vitals. Through clinical suspicion on initial examination, lactic acid was ordered. This was elevated to 3.4. Initially, patient has acute kidney injury with leukocytosis to 29. As such, patient meets criteria for septic shock. Repeat type lactate ordered, 2 L normal saline ordered, additional lab work ordered. Antibiotics against community-acquired pneumonia which is the presumed cause of the patient's sepsis has already been ordered as well as blood cultures. I discussed the above with the admitting hospitalist, Dr. Hollins. In our discussion, he requests antibiotic changed from azithromycin and ceftriaxone to vancomycin and Zosyn. The original antibiotic some not been given; I will change these orders. He also requests sputum culture with Gram stain. EKG dated 08/12/18 at 18:47 interpreted as sinus tachycardia with a rate of 107. First-degree AV block with SD 212. QTC 49. Normal axis. Nonspecific ST-T changes. Multifocal P waves consistent with pulmonary disease. Compared to previous EKG dated 11/25/2016 showing no acute ischemic changes or comparison. Vital Signs Temperature 98.9 F 08/12/18 18:41 Pulse Rate 108 08/12/18 18:41 Respiratory Rate 18 08/12/18 18:41 Blood Pressure 120/85 08/12/18 18:41 O2 Sat by Pulse Oximetry 95 08/12/18 18:41 Temperature 98.9 F 08/12/18 18:41 Pulse Rate 108 08/12/18 18:41 Respiratory Rate 18 08/12/18 18:41 Blood Pressure 120/85 08/12/18 18:41 O2 Sat by Pulse Oximetry 95 08/12/18 18:41 Oxygen Delivery Oxygen Delivery Room Air Medical Decision Making - Lab Data Result diagrams: 08/12/18 19:03 08/12/18 19:03 Lab Results 08/12/18 08/12/18 08/12/18 Range/Units 19:03 19:03 19:03 WBC 29.0 H (4.3-11.1) K/mcL RBC 4.28 (3.82-4.97) M/mcL Hgb 12.5 (11.5-15.4) g/dL Hct 38.1 (35.3-44.9) % MCV 89.0 (83.0-100.0) fL MCH 29.2 (28.0-33.3) pg MCHC 32.8 (31.6-35.5) g/dL RDW 13.4 (11.5-14.5) % Plt Count 246 (140-400) K/mcL MPV 9.1 L (9.4-12.4) fL Immature Gran % 1.0 (0-4) % Seg Neutrophils % 90.9 % Lymphocytes % 4.1 % Monocytes % 3.7 % Eosinophils % 0.0 % Basophils % 0.3 % Neutrophils # 26.4 H (1.6-8.9) K/mcL Lymphocytes # 1.2 (0.6-4.6) K/mcL Monocytes # 1.1 (0.0-1.3) K/mcL Eosinophils # 0.0 (0.0-0.6) K/mcL Basophils # 0.1 (0.0-0.2) K/mcL Reactive Lymphocytes Present A (Not Present) Toxic Granulation Present A (Not Present) Platelet Estimate Normal (Normal) Sodium 130 L (136-145) mEq/L Potassium 4.6 (3.5-5.1) mEq/L Chloride 101 (98-107) mEq/L Carbon Dioxide 22 L (23-29) mEq/L BUN 32 H (8-23) mg/dL Creatinine 1.65 H (0.60-1.20) mg/dL Est GFR ( Amer) 38 L (> 60) Est GFR (Non-Af Amer) 31 L (> 60) BUN/Creatinine Ratio 19 (6-26) Glucose 282 H (70-105) mg/dL Calculated Osmolality 287 (280-300) Lactic Acid 3.2 H (0.5-2.2) mmol/L Calcium 9.6 (8.6-10.3) mg/dL Magnesium 1.8 (1.6-2.6) mg/dL Total Bilirubin 0.4 (0.3-1.0) mg/dL Direct Bilirubin 0.2 (0.0-0.2) mg/dL Indirect Bilirubin 0.2 (0.0-1.2) mg/dL AST 21 (13-39) Units/L ALT 27 (7-52) Units/L Alkaline Phosphatase 81 (34-104) Units/L Troponin I < 0.03 (< 0.04) ng/mL B-Natriuretic Peptide (Less than 100) pg/mL Serum Total Protein 6.3 L (6.4-8.9) g/dL Albumin 3.8 (3.5-5.7) g/dL Globulin 2.5 (2.4-3.5) g/dL Albumin/Globulin Ratio 1.5 (1.1-2.2) Urine Color (Yellow) Urine Clarity (Clear) Urine pH (5.0-8.0) pH Units Ur Specific [place] (1.010-1.025) Urine Protein (Neg-Trace) mg/dL Urine Glucose (UA) (Normal) mg/dL Urine Ketones (Negative) mg/dL Urine Blood (Negative) Urine Nitrite (Negative) Urine Bilirubin (Negative) Urine Urobilinogen (Normal) mg/dL Ur Leukocyte Esterase (Negative) Urine Microscopic RBC (0-3) per hpf Urine Microscopic WBC (0-3) per hpf Ur Squamous Epith Cells (None-Few) per lpf Urine Bacteria (None-Few) per hpf Hyaline Casts (None-Few) per lpf Ur Culture Indicated? (NO) 08/12/18 08/12/18 Range/Units 19:03 19:54 WBC (4.3-11.1) K/mcL RBC (3.82-4.97) M/mcL Hgb (11.5-15.4) g/dL Hct (35.3-44.9) % MCV (83.0-100.0) fL MCH (28.0-33.3) pg MCHC (31.6-35.5) g/dL RDW (11.5-14.5) % Plt Count (140-400) K/mcL MPV (9.4-12.4) fL Immature Gran % (0-4) % Seg Neutrophils % % Lymphocytes % % Monocytes % % Eosinophils % % Basophils % % Neutrophils # (1.6-8.9) K/mcL Lymphocytes # (0.6-4.6) K/mcL Monocytes # (0.0-1.3) K/mcL Eosinophils # (0.0-0.6) K/mcL Basophils # (0.0-0.2) K/mcL Reactive Lymphocytes (Not Present) Toxic Granulation (Not Present) Platelet Estimate (Normal) Sodium (136-145) mEq/L Potassium (3.5-5.1) mEq/L Chloride (98-107) mEq/L Carbon Dioxide (23-29) mEq/L BUN (8-23) mg/dL Creatinine (0.60-1.20) mg/dL Est GFR ( Amer) (> 60) Est GFR (Non-Af Amer) (> 60) BUN/Creatinine Ratio (6-26) Glucose (70-105) mg/dL Calculated Osmolality (280-300) Lactic Acid (0.5-2.2) mmol/L Calcium (8.6-10.3) mg/dL Magnesium (1.6-2.6) mg/dL Total Bilirubin (0.3-1.0) mg/dL Direct Bilirubin (0.0-0.2) mg/dL Indirect Bilirubin (0.0-1.2) mg/dL AST (13-39) Units/L ALT (7-52) Units/L Alkaline Phosphatase (34-104) Units/L Troponin I (< 0.04) ng/mL B-Natriuretic Peptide 232 H (Less than 100) pg/mL Serum Total Protein (6.4-8.9) g/dL Albumin (3.5-5.7) g/dL Globulin (2.4-3.5) g/dL Albumin/Globulin Ratio (1.1-2.2) Urine Color Yellow (Yellow) Urine Clarity Clear (Clear) Urine pH 6.0 (5.0-8.0) pH Units Ur Specific [place] 1.010 (1.010-1.025) Urine Protein 30 H (Neg-Trace) mg/dL Urine Glucose (UA) 250 H (Normal) mg/dL Urine Ketones Negative (Negative) mg/dL Urine Blood Negative (Negative) Urine Nitrite Negative (Negative) Urine Bilirubin Negative (Negative) Urine Urobilinogen Normal (Normal) mg/dL Ur Leukocyte Esterase Negative (Negative) Urine Microscopic RBC 3-5 H (0-3) per hpf Urine Microscopic WBC 0-3 (0-3) per hpf Ur Squamous Epith Cells Moderate H (None-Few) per lpf Urine Bacteria None Seen (None-Few) per hpf Hyaline Casts None Seen (None-Few) per lpf Ur Culture Indicated? NO (NO) Attestation Statement - Attestation Attestation: I examined this patient and my medical decision-making was reviewed with the Resident Physician. I agree with the documented findings, disposition and treatment plan as described except to the extent set forth below. Findings consistent with pneumonia. We will start ceftriaxone and azithromycin. No risk factors for age. Blood cultures will be sent. The patient be admitted for further management. Findings consistent with sepsis which was noted at 7:49 PM. The patient actually came in for a fall and was subsequent found to have dyspnea with ultimate findings of pneumonia. There is lactic acidosis and acute kidney injury. This would represent multiorgan dysfunction in the setting of septic shock and we will proceed with admission with initiation of broad-spectrum antibiotics and the sepsis order set will be initiated at 7:49 PM
[2018-08-12 19:14] LABS: Mean Platelet Volume 9.1 fL (9.4-12.4)
[2018-08-12 19:16] LABS: Basophils # 0.1 K/mcL (0.0-0.2); Basophils % 0.3 %; Hematocrit 38.1 % (35.3-44.9); Hemoglobin 12.5 g/dL (11.5-15.4); Lymphocytes # 1.2 K/mcL (0.6-4.6); Lymphocytes % 4.1 %; Mean Corpuscular HGB Conc 32.8 g/dL (31.6-35.5); Mean Corpuscular Hemoglobin 29.2 pg (28.0-33.3); Monocytes # 1.1 K/mcL (0.0-1.3); Monocytes % 3.7 %; Neutrophils # 26.4 K/mcL (1.6-8.9); Platelet Count 246 K/mcL (140-400); Red Blood Count 4.28 M/mcL (3.82-4.97); Red Cell Distribution Width 13.4 % (11.5-14.5); Segmented Neutrophils % 90.9 %
[2018-08-12] MEDS ORDERED: Azithromycin 500 MG in D5% in Water 250 ML IVPB ONE (19:30)
[2018-08-12] MEDS ORDERED: cefTRIAXone 2,000 MG in 0.9 % Sodium Chloride Mini Bag 100 ML IVPB ONE (19:30)
[2018-08-12 19:36] LABS: Blood Urea Nitrogen 32 mg/dL (8-23); Calcium 9.6 mg/dL (8.6-10.3); Carbon Dioxide 22 mEq/L (23-29); Chloride 101 mEq/L (98-107); Glucose 282 mg/dL (70-105); Osmolality,Calculated 287 (280-300); Potassium 4.6 mEq/L (3.5-5.1); Reactive Lymphocytes Present (Not Present); Sodium 130 mEq/L (136-145); Troponin I < 0.03 ng/mL (< 0.04)
[2018-08-12 19:37] LABS: Platelet Estimate Normal (Normal); Toxic Granulation Present (Not Present)
[2018-08-12 19:39] LABS: BUN/Creatinine Ratio 19 (6-26); eGFR For Non-African Americans 31 (> 60)
[2018-08-12] MEDS ORDERED: Piperacillin/Tazobactam 3.375 GM in 0.9 % Sodium Chloride Mini Bag 100 ML IVPB ONE (20:05)
[2018-08-12 20:07] LABS: Bilirubin,Urine Negative (Negative); Blood,Urine Negative (Negative); Clarity,Urine Clear (Clear); Color,Urine Yellow (Yellow); Glucose,Urine (UA) 250 mg/dL (Normal); Ketones,Urine Negative (Negative); Leukocyte Esterase,Urine Negative (Negative); Nitrite,Urine Negative (Negative); Protein,Urine 30 mg/dL (Neg-Trace); Urobilinogen,Urine Normal (Normal)
[2018-08-12 20:10] LABS: Bacteria,Urine None Seen per hpf (None-Few); Hyaline Casts,Urine None Seen per lpf (None-Few); Squamous Epithelial Cell,Urine Moderate per lpf (None-Few); WBC,Urine 0-3 per hpf (0-3)
[2018-08-12 20:15] LABS: Alanine Aminotransferase 27 Units/L (7-52); Albumin 3.8 g/dL (3.5-5.7); Albumin/Globulin Ratio 1.5 (1.1-2.2); Alkaline Phosphatase 81 Units/L (34-104); Aspartate Amino Transferase 21 Units/L (13-39); Bilirubin,Direct 0.2 mg/dL (0.0-0.2); Bilirubin,Indirect 0.2 mg/dL (0.0-1.2); Bilirubin,Total 0.4 mg/dL (0.3-1.0); Globulin 2.5 g/dL (2.4-3.5); Magnesium 1.8 mg/dL (1.6-2.6); Total Protein 6.3 g/dL (6.4-8.9)
[2018-08-12] MEDS ORDERED: Dextrose Gel 15 GM/37.5 ML TUBE PO PRN ×2 (20:32)
--- NOTE | 2018-08-12 20:48 | Internal Med History&Physical ---
Date of Encounter: 08/12/18 Time of Encounter: 20:46 Internal Medicine - H&P: HPI Chief complaint: Malaise Admitted From: Home Plans for Post Hospital Care: Home History of present illness: Nisa Gomez is a 67-year-old woman with a history of multifocal right breast invasive ductal carcinoma diagnosed in March 2017 and underwent a modified right radical mastectomy and lymph node biopsy in July 2017 [pT2(m), pN1a, pMn/a (stage IIB)], started radiation in October 2017 and took 5 treatments but discontinued it due to right axillary pain and expressed her desire not to restart as well as deferring chemotherapy however she continues to follow in the oncology clinic for monitoring. She also has a history of CVA, hypertension , diabetes and remains an active smoker. She comes to the ER via EMS after she initially called her oncologist complaining of right axillary pain that she typically has and was advised to come to the emergency room. She also complains of feeling weak stating that her legs give out and felt as though she was having another stroke. No focal weaknesses were identified. On my assessment she states she has been having some shortness of breath with cough that has been present for over 2 weeks which is productive of nasty sputum. She also says she has been feeling as though she is burning up sometimes followed by episodes of chills and shakiness. On arrival to the ER her vital signs were within normal limits however her lab work was remarkable for WBC of 29 with 90% neutrophils and toxic granulations present as well as a lactate of 3.2. Chest x-ray was done which showed signs of a multifocal consolidation and on my review appears more predominant on the left lung field. Blood cultures were obtained and she was started on empiric antibiotics. Of note, she has a history of nephrolithiasis and currently has only a solitary right kidney being s/p left nephrectomy. Past Med Surg Social Fam HX - Past Medical History Medical history: cancer, CVA, diabetes, hypertension Psychiatric history: no psych history - Past Surgical History Additional surgical history: kidney,colonoscopy - Social History Smoking Status: Current every day smoker Smokeless Tobacco Status: No Alcohol use: none Drug use: none - Family History Mother Living Status: Hx Family Endocrine Disorder: Yes Internal Medicine - H&P: Meds Lisinopril [Zestril] 40 mg PO DAILY 12/07/16 [History] amLODIPine [Norvasc] 5 mg PO DAILY 12/07/16 [History] metFORMIN [Glucophage] 500 mg PO BIDWM 12/07/16 [History] Naproxen [Naprosyn] 1 tab PO BID PRN 03/29/17 [History] Calcium Carbonate/Vitamin D3 [Calcium 500 + Vit D Caplet] 2 each PO DAILY #60 tablet 04/01/17 [Rx] Rizatriptan Benzoate [Maxalt] 5 mg PO DAILY 05/31/17 [History] Rosuvastatin Calcium [Crestor] 40 mg PO DAILY 05/31/17 [History] Acetaminophen [Tylenol] 325 mg PO TID PRN #60 tablet 11/10/17 [Rx] Anastrozole [Arimidex] 1 mg PO DAILY #90 tablet 11/10/17 [Rx] Omeprazole [PriLOSEC] 40 mg PO DAILY #30 capsule. 11/10/17 [Rx] 3 Allergy/AdvReac Type Severity Reaction Status Date / Time No Known Allergies Allergy Verified 02/09/18 09:30 All Systems PM: A 10-system review of systems was performed and is negative for pertinent findings except as documented above in the HPI. - Constitutional Vitals: Temp Pulse Resp BP Pulse Ox 98.9 F 108 18 120/85 95 08/12/18 18:41 08/12/18 18:41 08/12/18 18:41 08/12/18 18:41 08/12/18 18:41 Exam: Vitals: Reviewed General: NAD, appears chronically ill and unkempt Skin: Flushed, warm, dry. HEENT: Dry mucous membranes. No conjunctivae pallor. Neck: No lymphadenopathy. No JVD. Chest: Normal thoracic expansion. Diffuse rhonchi. Heart: Normal S1 & S2; rhythmic. Abdomen: Non-distended, soft and non-tender to palpation. Extremities: No clubbing, cyanosis or edema. No calf tenderness. Normal distal pulses. Neurological: Awake, alert and oriented to person, place and time. Moves all extremities actively. Psych: Affect appropriate. Internal Med - H&P Results - Labs CBC & Chem 7: 08/12/18 19:03 08/12/18 19:03 - Assessment and plan (1) Severe sepsis Current Visit: Yes Status: Acute Assessment and plan: As evidenced by high grade leukocytosis with lactic acidosis; secondary to pneumonia. Given her medical history and contact with medical care can be classified as healthcare associated. Will start with 2L IV NS bolus, obtain cultures and give empiric abx. Repeat lactate in 2 hours. Admit as inpatient. (2) HCAP (healthcare-associated pneumonia) Current Visit: Yes Status: Acute Assessment and plan: As noted above. Will obtain sputum culture/gram stain, urine Strep and Legionella Ag. Will obtain non-contrast chest CT to ensure her underlying breast malignancy has not caused metastatic disease to the lung manifesting as pneumonia. (3) Breast cancer Current Visit: Yes Status: Chronic Assessment and plan: s/p mastectomy. Last check showed no signs of persistence. Will continue to follow with oncology. Qualifiers: Breast location: unspecified site of breast Estrogen receptor status: unspecified Patient sex: female Laterality: right Qualified Code(s): C50.911 - Malignant neoplasm of unspecified site of right female breast (4) Acute on chronic kidney failure Current Visit: Yes Status: Acute Assessment and plan: Likely due to volume loss as the patient clinically appears dehydrated and compounded by her current septic state. We shall repeat BMP after fluid resuscitation to recheck creatinine. Qualifiers: Acute renal failure type: unspecified Chronic kidney disease stage: stage 3 (moderate) Qualified Code(s): N17.9 - Acute kidney failure, unspecified; N18.3 - Chronic kidney disease, stage 3 (moderate) (5) Diabetes mellitus Current Visit: Yes Status: Chronic Assessment and plan: A1c was 6.1% 6 months ago demonstrative of excellent control. We will place on insulin sliding scale for now holding metformin in the setting of acute kidney injury. Qualifiers: Diabetes mellitus type: type 2 Diabetes mellitus fci insulin use: without fci use Diabetes mellitus complication status: with unspecified complications Qualified Code(s): E11.8 - Type 2 diabetes mellitus with unspecified complications (6) Essential hypertension Current Visit: Yes Status: Chronic Assessment and plan: BP values currently well-controlled. We will resume home antihypertensives. (7) Tobacco abuse Current Visit: Yes Status: Chronic Assessment and plan: Counseled extensively and resources made available. (8) Hyponatremia Current Visit: Yes Status: Acute Assessment and plan: Likely hypovolemic in origin. IVC saline ordered and sodium level will be rechecked. (9) DVT prophylaxis Current Visit: Yes Status: Acute Assessment and plan: SubQ heparin indicated. - Time Spent With Patient Total time spent is greater than 50% in coordination of care (as documented) at patient's floor/unit and/or counseling patient: Greater than 35 minutes
[2018-08-12] MEDS: 0.9 % Sodium Chloride 1,000 ML IVC SCH ×2 (20:53→23:08)
[2018-08-12] MEDS: Ipratropium/Albuterol Neb 3 ML IH SCH (23:02)
[2018-08-12] MEDS: *HR* Heparin 5,000 UNIT/ML VIAL SQ SCH (23:23)
[2018-08-12] MEDS: Insulin LISPRO 300 UNITS/3 ML VIAL SQ SCH (23:23)
[2018-08-13] MEDS ORDERED: (Rizatriptan Benzoate [Maxalt] 5 MG) PO PRN (00:40)
[2018-08-13] MEDS: 0.9 % Sodium Chloride 1,000 ML IVC SCH ×2 (00:46→10:04)
[2018-08-13] MEDS: Ipratropium/Albuterol Neb 3 ML IH SCH ×5 (04:36→20:05)
[2018-08-13] MEDS ORDERED: Piperacillin/Tazobactam 3.375 GM in 0.9 % Sodium Chloride Mini Bag 100 ML IVPB SCH (06:00)
[2018-08-13 06:10] LABS: Basophils # 0.1 K/mcL (0.0-0.2); Basophils % 0.4 %; Eosinophils # 0.1 K/mcL (0.0-0.6); Eosinophils % 0.4 %; Hematocrit 31.5 % (35.3-44.9); Immature Granulocytes % 1.7 % (0-4); Lymphocytes # 2.6 K/mcL (0.6-4.6); Lymphocytes % 10.9 %; Mean Corpuscular HGB Conc 32.7 g/dL (31.6-35.5); Mean Corpuscular Volume 88.7 fL (83.0-100.0); Monocytes # 1.3 K/mcL (0.0-1.3); Monocytes % 5.2 %; Neutrophils # 19.7 K/mcL (1.6-8.9); Platelet Count 219 K/mcL (140-400); Red Blood Count 3.55 M/mcL (3.82-4.97); Red Cell Distribution Width 13.6 % (11.5-14.5); Segmented Neutrophils % 81.4 %
[2018-08-13 06:12] LABS: Hemoglobin 10.3 g/dL (11.5-15.4)
[2018-08-13] MEDS: *HR* Heparin 5,000 UNIT/ML VIAL SQ SCH ×3 (06:29→21:41)
[2018-08-13] MEDS: Piperacillin/Tazobactam 3.375 GM in 0.9 % Sodium Chloride Mini Bag 100 ML IVPB SCH ×3 (06:31→21:29)
[2018-08-13 06:32] LABS: Platelet Estimate Normal (Normal)
[2018-08-13 06:33] LABS: Reactive Lymphocytes Present (Not Present)
[2018-08-13 06:34] LABS: Calcium 8.6 mg/dL (8.6-10.3); Potassium 4.3 mEq/L (3.5-5.1)
[2018-08-13] MEDS ORDERED: Lisinopril 20 MG TABLET PO SCH (09:00)
[2018-08-13] MEDS ORDERED: amLODIPine 5 MG TABLET PO SCH (09:00)
[2018-08-13] MEDS: Insulin LISPRO 300 UNITS/3 ML VIAL SQ SCH ×4 (09:25→21:44)
--- NOTE | 2018-08-13 10:15 | Internal Med Progress Note ---
Hospitalist Progress Note - Encounter Date of Encounter: 08/13/18 Time of Encounter: 10:05 - Subjective Interval History: Still feeling malaise Cough, productive sputum, white Some chills Right xillar pain Left lower chest pleutitic pain dizzy - Exam Vitals: Temp Pulse Resp BP Pulse Ox 98.5 F 96 17 110/67 92 08/13/18 08:13 08/13/18 08:13 08/13/18 08:13 08/13/18 08:13 08/13/18 08:13 Exam: Vitals: Reviewed General: coughing, no acute distress, appears in mild to moderate pain HEENT: Dry mucous membranes. No icterus Neck: supple, no meningismus Chest: Good air entry, diffuse rhonchi and wheezing Heart: Normal S1 & S2; no MRG Abdomen: Non-distended, soft, minimal tenderness to palpation LUQ, no guarding or rebound Extremities: No clubbing, cyanosis or edema. Normal distal pulses. Neurological: Awake, alert and oriented to person, place and time. Moves all extremities actively. No dysarthria Psych: Affect appropriate. - Assessment and Plan (1) Sepsis Current Visit: Yes Status: Acute (2) Acute kidney injury Current Visit: Yes Status: Acute (3) Acute on chronic kidney failure Current Visit: Yes Status: Acute (4) Elevated lactic acid level Current Visit: Yes Status: Acute (5) HCAP (healthcare-associated pneumonia) Current Visit: Yes Status: Acute (6) Diabetes mellitus Current Visit: Yes Status: Chronic (7) Essential hypertension Current Visit: Yes Status: Chronic (8) ELÍAS (acute kidney injury) Current Visit: Yes Status: Resolved - Summary of Assessment and Plan Summary of Assessment and Plan: Per H&P: 67W with history of multifocal right breast invasive ductal carcinoma diagnosed in March 2017 s/p modified right radical mastectomy and lymph node biopsy in July 2017 [pT2(m), pN1a, pMn/a (stage IIB)], started radiation in October 2017 and took 5 treatments but discontinued it due to right axillary pain and expressed her desire not to restart as well as deferring chemotherapy however she continues to follow in the oncology clinic for monitoring. She also has a history of CVA, hypertension, diabetes and remains an active smoker. She comes to the ER via EMS after she initially called her oncologist complaining of right axillary pain that she typically has and was advised to come to the emergency room. She also complains of feeling weak stating that her legs give out and felt as though she was having another stroke. No focal weaknesses were identified. She also reported shortness of breath with cough that has been present for over 2 weeks which is productive of nasty sputum. She also says she has been feeling as though she is burning up sometimes followed by episodes of chills and shakiness. On arrival to the ER her vital signs were within normal limits however her lab work was remarkable for WBC of 29 with 90% neutrophils and toxic granulations present as well as a lactate of 3.2. Chest x-ray was done which showed signs of a multifocal consolidation. Blood cultures were obtained and she was started on empiric antibiotics. Of note, she has a history of nephrolithiasis and currently has only a solitary right kidney being s/p left nephrectomy. Severe sepsis, without shock due to multifocal pneumonia / HCAP - leukocytosis, lactic acidosis; secondary to pneumonia. Given her medical history and contact with medical care can be classified as healthcare associated. - WBC 29k --> 24k - CT A/P: Multifocal pneumonia, mostly LLL, no pleural effusion, reactive mediastinal lymphadenopathy - Cont Vancomycin, Zosyn (08/13- ) - Blood cultures pending - sputum culture/gram stain, urine Strep and Legionella Ag pending Acute on chronic kidney failure - Likely pre-renal, due to sepsis, NSIADs - Cr 1.6 --> 1.3, baseline 1.0 - DC naproxen - Cont to hold lisinopril - Cont IVF - Encourage oral fluids Breast cancer - s/p mastectomy. Last check showed no signs of persistence. - Will continue to follow with oncology. Diabetes mellitus - HbA1c was 6.1% 6 months ago - Hold metformin due to ELÍAS - Cont SSI Essential hypertension - cont to hold lisinopril - cont to hold amlodipine, assess to start if BP is persistently high and no longer at risk of septic shock Tobacco abuse Counseled Hyponatremia, resolved Likely hypovolemic in origin VTE prophylaxis SubQ heparin - Time Spent with Patient Total time spent is greater than 50% in coordination of care (as documented) at patient's floor/unit and/or counseling patient: Internal Medicine: Result - Labs CBC & Chem 7: 08/13/18 05:53 08/13/18 05:53 Labs: Short CBC 08/13/18 Range/Units 05:53 WBC 24.2 H (4.3-11.1) K/mcL Hgb 10.3 L D (11.5-15.4) g/dL Hct 31.5 L (35.3-44.9) % Plt Count 219 (140-400) K/mcL Neutrophils # 19.7 H (1.6-8.9) K/mcL BMP 08/13/18 05:53 Sodium 137 Potassium 4.3 Chloride 114 H Carbon Dioxide 21 L BUN 30 H Creatinine 1.36 H Glucose 100 Calcium 8.6 - Impressions Impressions Chest CT 08/13/18 00:02 IMPRESSION: 1. Findings consistent with multifocal pneumonia, most prominently involving the left lower lobe. No significant pleural effusion is present. 2. Mild mediastinal lymphadenopathy, most likely reactive. 3. Findings at the lung apices could indicate trace interstitial edema. 4. Stable appearance of benign left adrenal myelolipoma. 5. Hepatic steatosis. 6. Coronary atherosclerosis. D/ / 08/13/2018 08:07:39 Yoshi Kaufman MD / [email or web address] Interpreting Provider: Yoshi Kaufman MD Consult Discharge Plan - Plan Referrals: Garrett Judd DO [Resident] - (3) Acute on chronic kidney failure Qualifiers: Acute renal failure type: unspecified Chronic kidney disease stage: stage 3 ( moderate) Qualified Code(s): N17.9 - Acute kidney failure, unspecified; N18.3 - Chronic kidney disease, stage 3 (moderate) (6) Diabetes mellitus Qualifiers: Diabetes mellitus type: type 2 Diabetes mellitus fdc insulin use: without fdc use Diabetes mellitus complication status: with unspecified complications Qualified Code(s): E11.8 - Type 2 diabetes mellitus with unspecified complications
[2018-08-13] MEDS: Acetaminophen 325 MG TABLET PO PRN (13:26)
[2018-08-13] MEDS: *HR* OxyCODONE Immed Rel 5 MG TABLET PO PRN (19:54)
[2018-08-13] MEDS: Anastrozole 1 MG TABLET PO SCH ×2 (21:40)
[2018-08-14 05:11] LABS: Basophils # 0.1 K/mcL (0.0-0.2); Basophils % 0.4 %; Eosinophils # 0.2 K/mcL (0.0-0.6); Eosinophils % 0.8 %; Hematocrit 33.9 % (35.3-44.9); Immature Granulocytes % 2.7 % (0-4); Lymphocytes # 1.5 K/mcL (0.6-4.6); Mean Corpuscular HGB Conc 32.4 g/dL (31.6-35.5); Mean Corpuscular Hemoglobin 28.6 pg (28.0-33.3); Mean Corpuscular Volume 88.3 fL (83.0-100.0); Mean Platelet Volume 9.3 fL (9.4-12.4); Monocytes # 0.7 K/mcL (0.0-1.3); Monocytes % 3.3 %; Neutrophils # 17.9 K/mcL (1.6-8.9); Platelet Count 231 K/mcL (140-400); Red Blood Count 3.84 M/mcL (3.82-4.97); Segmented Neutrophils % 85.8 %
[2018-08-14 05:34] LABS: Calcium 9.4 mg/dL (8.6-10.3); Magnesium 1.8 mg/dL (1.6-2.6); Potassium 4.1 mEq/L (3.5-5.1)
[2018-08-14] MEDS: Piperacillin/Tazobactam 3.375 GM in 0.9 % Sodium Chloride Mini Bag 100 ML IVPB SCH ×3 (06:27→22:23)
[2018-08-14] MEDS: Acetaminophen 325 MG TABLET PO PRN ×2 (06:29→15:32)
[2018-08-14] MEDS: *HR* Heparin 5,000 UNIT/ML VIAL SQ SCH ×3 (06:31→22:23)
[2018-08-14] MEDS: Cholecalciferol (D-3) 1,000 UNIT TABLET PO SCH (08:29)
[2018-08-14] MEDS: Insulin LISPRO 300 UNITS/3 ML VIAL SQ SCH ×4 (08:31→20:12)
--- NOTE | 2018-08-14 10:49 | Internal Med Progress Note ---
Hospitalist Progress Note - Encounter Date of Encounter: 08/14/18 Time of Encounter: 16:05 - Subjective Interval History: Pt states she still feels SOB. She denies fever or chills. Positive cough but rare sputum. She denies N/V or diarrhea. - Exam Vitals: Temp Pulse Resp BP Pulse Ox 98.3 F 90 20 157/78 94 08/14/18 07:35 08/14/18 07:35 08/14/18 07:35 08/14/18 07:35 08/14/18 08:44 Exam: Vitals: Reviewed General: coughing, no acute distress, appears in mild to moderate pain HEENT: Dry mucous membranes. No icterus Neck: supple, no meningismus Chest: Good air entry, diffuse rhonchi and wheezing Heart: Normal S1 & S2; no MRG Abdomen: Non-distended, soft, minimal tenderness to palpation LUQ, no guarding or rebound Extremities: No clubbing, cyanosis or edema. Normal distal pulses. Neurological: Awake, alert and oriented to person, place and time. Moves all extremities actively. No dysarthria Psych: Affect appropriate. - Assessment and Plan (1) Type II diabetes mellitus Current Visit: Yes Status: Acute Assessment and Plan: Hgb A 1C 6.1% 6 months ago. Metformin on hold. Levemir 5 units QHS and SSI (2) Acute kidney injury Current Visit: Yes Status: Acute (3) Elevated lactic acid level Current Visit: Yes Status: Acute (4) Severe sepsis Current Visit: Yes Status: Acute Assessment and Plan: WBC 29.0, 24.2, 20.9. CT chest showed findings consistent with multi focal PNA. Mostly involving LLL and mild lymphadenopathy. Lung apices could indicate trace interstitial edema. Will continue on Vancomycin and Zosyn for now. Legionella and strep neg so far (5) HCAP (healthcare-associated pneumonia) Current Visit: Yes Status: Acute Assessment and Plan: On Vancomycin, Zosyn, and Levaquin. WBC trending down. Awaiting pt to give sputum sample. (6) Acute on chronic kidney failure Current Visit: Yes Status: Acute Assessment and Plan: Pre renal due to sepsis, NSAIds Cr 1.65 down to 1.36 to 1.15. (7) Essential hypertension Current Visit: Yes Status: Chronic Assessment and Plan: Lisinopril and amlodipine was on hold. Blood pressure improved. (8) Breast cancer Current Visit: Yes Status: Chronic Assessment and Plan: - s/p mastectomy. Last check showed no signs of persistence. - Will continue to follow with oncology. (9) Hyponatremia Current Visit: Yes Status: Acute Assessment and Plan: Hyponatremia improving. Will monitor renal function daily. DVT Prophylaxis: Heparin - Summary of Assessment and Plan Summary of Assessment and Plan: Per H&P: 67W with history of multifocal right breast invasive ductal carcinoma diagnosed in March 2017 s/p modified right radical mastectomy and lymph node biopsy in July 2017 [pT2(m), pN1a, pMn/a (stage IIB)], started radiation in October 2017 and took 5 treatments but discontinued it due to right axillary pain and expressed her desire not to restart as well as deferring chemotherapy however she continues to follow in the oncology clinic for monitoring. She also has a history of CVA, hypertension, diabetes and remains an active smoker. She comes to the ER via EMS after she initially called her oncologist complaining of right axillary pain that she typically has and was advised to come to the emergency room. She also complains of feeling weak stating that her legs give out and felt as though she was having another stroke. No focal weaknesses were identified. She also reported shortness of breath with cough that has been present for over 2 weeks which is productive of nasty sputum. She also says she has been feeling as though she is burning up sometimes followed by episodes of chills and shakiness. On arrival to the ER her vital signs were within normal limits however her lab work was remarkable for WBC of 29 with 90% neutrophils and toxic granulations present as well as a lactate of 3.2. Chest x-ray was done which showed signs of a multifocal consolidation. Blood cultures were obtained and she was started on empiric antibiotics. Of note, she has a history of nephrolithiasis and currently has only a solitary right kidney being s/p left nephrectomy. - Time Spent with Patient Total time spent is greater than 50% in coordination of care (as documented) at patient's floor/unit and/or counseling patient: less than 15 minutes Plan of Care Discussed with: patient Internal Medicine: Result - Labs CBC & Chem 7: 08/14/18 04:51 08/14/18 04:51 Labs: Short CBC 08/14/18 Range/Units 04:51 WBC 20.9 H (4.3-11.1) K/mcL Hgb 11.0 L (11.5-15.4) g/dL Hct 33.9 L (35.3-44.9) % Plt Count 231 (140-400) K/mcL Neutrophils # 17.9 H (1.6-8.9) K/mcL BMP 08/14/18 04:51 Sodium 135 L Potassium 4.1 Chloride 110 H Carbon Dioxide 19 L BUN 19 Creatinine 1.15 Glucose 148 H Calcium 9.4 Consult Discharge Plan - Plan Referrals: Garrett Judd DO [Resident] - (6) Acute on chronic kidney failure Qualifiers: Acute renal failure type: unspecified Chronic kidney disease stage: stage 3 ( moderate) Qualified Code(s): N17.9 - Acute kidney failure, unspecified; N18.3 - Chronic kidney disease, stage 3 (moderate) (8) Breast cancer Qualifiers: Breast location: unspecified site of breast Estrogen receptor status: unspecified Patient sex: female Laterality: right Qualified Code(s): C50.911 - Malignant neoplasm of unspecified site of right female breast
--- NOTE | 2018-08-14 15:30 | Electrocardiograph Report ---
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
[2018-08-14] MEDS: Anastrozole 1 MG TABLET PO SCH (20:19)
[2018-08-14] MEDS: Insulin DETEMIR 100 UNIT/ML X5UNITS SQ SCH (22:32)
[2018-08-15] MEDS: *HR* Heparin 5,000 UNIT/ML VIAL SQ SCH ×3 (05:24→20:42)
[2018-08-15] MEDS: *HR* OxyCODONE Immed Rel 5 MG TABLET PO PRN ×2 (06:38→16:13)
[2018-08-15] MEDS: Piperacillin/Tazobactam 3.375 GM in 0.9 % Sodium Chloride Mini Bag 100 ML IVPB SCH ×2 (06:41→16:04)
[2018-08-15] MEDS: Lisinopril 20 MG TABLET PO SCH (08:02)
[2018-08-15] MEDS: amLODIPine 5 MG TABLET PO SCH (08:02)
[2018-08-15] MEDS: Acetaminophen 325 MG TABLET PO PRN (08:02)
[2018-08-15] MEDS: Cholecalciferol (D-3) 1,000 UNIT TABLET PO SCH (08:02)
[2018-08-15] MEDS: Insulin LISPRO 300 UNITS/3 ML VIAL SQ SCH ×4 (08:03→20:11)
[2018-08-15] MEDS ORDERED: Aminoglycoside Consult 1 EACH MC ONE (13:03)
--- NOTE | 2018-08-15 13:51 | Internal Med Progress Note ---
Hospitalist Progress Note - Encounter Date of Encounter: 08/15/18 Time of Encounter: 13:47 - Subjective Interval History: Pt states she still feels SOB. She denies fever or chills. Positive cough but rare sputum. She denies N/V or diarrhea. - Exam Vitals: Temp Pulse Resp BP Pulse Ox 97.6 F 97 18 133/84 91 08/15/18 11:20 08/15/18 11:20 08/15/18 11:20 08/15/18 11:20 08/15/18 11:20 Exam: Vitals: Reviewed General: coughing, no acute distress, appears in mild to moderate pain HEENT: Dry mucous membranes. No icterus Neck: supple, no meningismus Chest: Good air entry, diffuse rhonchi and wheezing Heart: Normal S1 & S2; no MRG Abdomen: Non-distended, soft, minimal tenderness to palpation LUQ, no guarding or rebound Extremities: No clubbing, cyanosis or edema. Normal distal pulses. Neurological: Awake, alert and oriented to person, place and time. Moves all extremities actively. No dysarthria Psych: Affect appropriate. - Assessment and Plan (1) Severe sepsis Current Visit: Yes Status: Acute Assessment and Plan: WBC 29.0, 24.2, 20.9. CT chest showed findings consistent with multi focal PNA. Mostly involving LLL and mild lymphadenopathy. Lung apices could indicate trace interstitial edema. Will continue on Vancomycin and Zosyn for now. Will de-escalate antibiotic once WBC improves. Legionella and strep neg so far and sputum showing epithelial cells. (2) HCAP (healthcare-associated pneumonia) Current Visit: Yes Status: Acute Assessment and Plan: On Vancomycin, Zosyn, and Levaquin. WBC trending down. Sputum sample sent and results pending. (3) Elevated lactic acid level Current Visit: Yes Status: Acute Assessment and Plan: Will recheck was 1.9 on admission. (4) Acute on chronic kidney failure Current Visit: Yes Status: Acute Assessment and Plan: Pre renal due to sepsis, NSAIds Cr 1.65 down to 1.36 to 1.15. Resolved (5) Type II diabetes mellitus Current Visit: Yes Status: Acute Assessment and Plan: Hgb A 1C 6.1% 6 months ago. Metformin on hold. Levemir 5 units QHS and SSI. Glucose improved. (6) Essential hypertension Current Visit: Yes Status: Chronic Assessment and Plan: Lisinopril and amlodipine was on hold. Blood pressure improved. (7) Breast cancer Current Visit: Yes Status: Chronic Assessment and Plan: - s/p mastectomy. Last check showed no signs of persistence. - Will continue to follow with oncology. (8) Hyponatremia Current Visit: Yes Status: Acute Assessment and Plan: Hyponatremia improving. Will monitor renal function daily. DVT Prophylaxis: Heparin - Summary of Assessment and Plan Summary of Assessment and Plan: Per H&P: 67W with history of nephrolithiasis and currently has only a solitary right kidney being s/p left nephrectomy, multifocal right breast invasive ductal carcinoma diagnosed in March 2017 s/p modified right radical mastectomy and lymph node biopsy in July 2017 [pT2(m), pN1a, pMn/a (stage IIB)], started radiation in October 2017 and took 5 treatments but discontinued it due to right axillary pain and expressed her desire not to restart as well as deferring chemotherapy however she continues to follow in the oncology clinic for monitoring. She also has a history of CVA, hypertension, diabetes and remains an active smoker. She comes to the ER via EMS after she initially called her oncologist complaining of right axillary pain that she typically has and was advised to come to the emergency room. She also complains of feeling weak stating that her legs give out and felt as though she was having another stroke. No focal weaknesses were identified. She also reported shortness of breath with cough that has been present for over 2 weeks which is productive of nasty sputum. She also says she has been feeling as though she is burning up sometimes followed by episodes of chills and shakiness. On arrival to the ER her vital signs were within normal limits however her lab work was remarkable for WBC of 29 with 90% neutrophils and toxic granulations present as well as a lactate of 3.2. Chest x-ray was done which showed signs of a multifocal consolidation. Blood cultures were obtained and she was started on empiric antibiotics. - Time Spent with Patient Total time spent is greater than 50% in coordination of care (as documented) at patient's floor/unit and/or counseling patient: less than 15 minutes Plan of Care Discussed with: patient Internal Medicine: Result - Labs CBC & Chem 7: 08/14/18 04:51 08/14/18 04:51 Consult Discharge Plan - Plan Referrals: Garrett Judd DO [Resident] - (4) Acute on chronic kidney failure Qualifiers: Acute renal failure type: unspecified Chronic kidney disease stage: stage 3 ( moderate) Qualified Code(s): N17.9 - Acute kidney failure, unspecified; N18.3 - Chronic kidney disease, stage 3 (moderate) (7) Breast cancer Qualifiers: Breast location: unspecified site of breast Estrogen receptor status: unspecified Patient sex: female Laterality: right Qualified Code(s): C50.911 - Malignant neoplasm of unspecified site of right female breast
[2018-08-15 14:39] LABS: Basophils # 0.1 K/mcL (0.0-0.2); Basophils % 0.8 %; Eosinophils # 0.3 K/mcL (0.0-0.6); Eosinophils % 1.6 %; Hematocrit 37.6 % (35.3-44.9); Hemoglobin 12.3 g/dL (11.5-15.4); Immature Granulocytes % 1.2 % (0-4); Lymphocytes # 1.8 K/mcL (0.6-4.6); Lymphocytes % 11.1 %; Mean Corpuscular HGB Conc 32.7 g/dL (31.6-35.5); Mean Corpuscular Hemoglobin 28.5 pg (28.0-33.3); Mean Corpuscular Volume 87.2 fL (83.0-100.0); Mean Platelet Volume 9.1 fL (9.4-12.4); Monocytes # 0.9 K/mcL (0.0-1.3); Monocytes % 5.5 %; Neutrophils # 12.8 K/mcL (1.6-8.9); Platelet Count 308 K/mcL (140-400); Red Blood Count 4.31 M/mcL (3.82-4.97); Red Cell Distribution Width 13.6 % (11.5-14.5); Segmented Neutrophils % 79.8 %
[2018-08-15 14:49] LABS: BUN/Creatinine Ratio 20 (6-26); Blood Urea Nitrogen 19 mg/dL (8-23); Calcium 9.1 mg/dL (8.6-10.3); Carbon Dioxide 23 mEq/L (23-29); Chloride 106 mEq/L (98-107); Glucose 99 mg/dL (70-105); Osmolality,Calculated 284 (280-300); Potassium 3.5 mEq/L (3.5-5.1); Sodium 136 mEq/L (136-145); eGFR For Non-African Americans 58 (> 60)
[2018-08-15] MEDS ORDERED: levoFLOXacin 750 MG TABLET PO SCH (15:00)
[2018-08-15] MEDS: Insulin DETEMIR 100 UNIT/ML X5UNITS SQ SCH (20:42)
[2018-08-15] MEDS: Anastrozole 1 MG TABLET PO SCH (20:42)
[2018-08-16] MEDS: *HR* OxyCODONE Immed Rel 5 MG TABLET PO PRN ×2 (00:33→10:06)
[2018-08-16] MEDS: *HR* Heparin 5,000 UNIT/ML VIAL SQ SCH (06:44)
[2018-08-16 07:08] LABS: Basophils # 0.2 K/mcL (0.0-0.2); Eosinophils # 0.2 K/mcL (0.0-0.6); Eosinophils % 1.5 %; Hematocrit 38.2 % (35.3-44.9); Hemoglobin 12.5 g/dL (11.5-15.4); Immature Granulocytes % 1.9 % (0-4); Lymphocytes # 1.7 K/mcL (0.6-4.6); Lymphocytes % 11.3 %; Mean Corpuscular HGB Conc 32.7 g/dL (31.6-35.5); Mean Corpuscular Hemoglobin 28.8 pg (28.0-33.3); Monocytes # 1.3 K/mcL (0.0-1.3); Monocytes % 8.4 %; Neutrophils # 11.3 K/mcL (1.6-8.9); Platelet Count 334 K/mcL (140-400); Red Blood Count 4.34 M/mcL (3.82-4.97); Red Cell Distribution Width 13.5 % (11.5-14.5); Segmented Neutrophils % 75.9 %
[2018-08-16 07:28] LABS: BUN/Creatinine Ratio 22 (6-26); Blood Urea Nitrogen 23 mg/dL (8-23); Calcium 9.6 mg/dL (8.6-10.3); Carbon Dioxide 20 mEq/L (23-29); Chloride 104 mEq/L (98-107); Glucose 79 mg/dL (70-105); Osmolality,Calculated 281 (280-300); Potassium 3.5 mEq/L (3.5-5.1); Sodium 134 mEq/L (136-145); eGFR For Non-African Americans 53 (> 60)
[2018-08-16] MEDS ORDERED: levoFLOXacin 750 MG TABLET PO SCH (09:00)
[2018-08-16] MEDS: Insulin LISPRO 300 UNITS/3 ML VIAL SQ SCH ×2 (09:03→12:19)
[2018-08-16] MEDS: Lisinopril 20 MG TABLET PO SCH (09:57)
[2018-08-16] MEDS: amLODIPine 5 MG TABLET PO SCH (09:58)
[2018-08-16] MEDS: Cholecalciferol (D-3) 1,000 UNIT TABLET PO SCH (09:58)
[2018-08-16 13:09] VITALS: BP 121/57
--- NOTE | 2018-08-16 14:43 | Discharge Summary ---
- NOTES TO OUTPATIENT PROVIDER Notes to Outpatient Provider: PCP in 5 to 7 days Orders not resulted at time of discharge: Pending orders 08/17/18 04:00 CBC [Complete Blood Count] [HEME] AM 0400 08/18/18 04:00 CBC [Complete Blood Count] [HEME] AM 0400 08/19/18 04:00 CBC [Complete Blood Count] [HEME] AM 0400 Date of Encounter: 08/16/18 Time of Encounter: 14:39 - Discharge Diagnosis (1) Severe sepsis Priority: Primary Status: Acute Assessment and Plan: WBC 29.0, 24.2, 20.9, 16.1, 14.[address] tred[address] down appropriately. CT chest showed findings consistent with multi focal PNA. Mostly involving LLL and mild lymphadenopathy. Lung apices could indicate trace interstitial edema. Pt was on Vancomycin and Zosyn. Was de-escalated to Levaquin 750 mg PO QD for 10 more days. Legionella and strep neg so far and sputum showing epithelial cells. (2) HCAP (healthcare-associated pneumonia) Priority: Primary Status: Acute Assessment and Plan: Slowly resolving. She was on Vancomycin, Zosyn, and she is now Levaquin. WBC trending down. follow up out pt with pcp for possible imaging in 4 to 6 weeks tjo confirm complete resolution. Sputum sample sent and shows many epithelial cells. (3) Elevated lactic acid level Priority: Secondary Status: Acute Assessment and Plan: lactic acid was 1.9 on admission and is now down to 0.7 (4) Acute on chronic kidney failure Priority: Secondary Status: Acute Assessment and Plan: EÍLAS resolved. Qualifiers: Acute renal failure type: unspecified Chronic kidney disease stage: stage 3 (moderate) Qualified Code(s): N17.9 - Acute kidney failure, unspecified; N18.3 - Chronic kidney disease, stage 3 (moderate) (5) Type II diabetes mellitus Priority: Secondary Status: Acute Assessment and Plan: On Metformin at home and may resume home medication. Qualifiers: Qualified Code(s): E11.9 - Type 2 diabetes mellitus without complications (6) Essential hypertension Priority: Secondary Status: Chronic Assessment and Plan: Lisinopril and amlodipine was on hold. Blood pressure improved. (7) Breast cancer Priority: Secondary Status: Chronic Assessment and Plan: - s/p mastectomy. Last check showed no signs of persistence. - Will continue to follow with oncology. Qualifiers: Breast location: unspecified site of breast Estrogen receptor status: unspecified Patient sex: female Laterality: right Qualified Code(s): C50.911 - Malignant neoplasm of unspecified site of right female breast (8) Hyponatremia Priority: Secondary Status: Acute Assessment and Plan: Hyponatremia improving. Follow up with PCP out pt. Hospital course: Ms. 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 She also has a history of CVA , hypertension, diabetes and remains an active smoker. She comes to the ER via EMS after she initially called her oncologist complaining of right axillary pain that she typically has and was advised to come to the emergency room. She also complains of feeling weak stating that her legs give out and felt as though she was having another stroke. No focal weaknesses were identified. She also reported shortness of breath with cough that has been present for over 2 weeks which is productive of nasty sputum. She also says she has been feeling as though she is burning up sometimes followed by episodes of chills and shakiness. On arrival to the ER her vital signs were within normal limits however her lab work was remarkable for WBC of 29 with 90% neutrophils and toxic granulations present as well as a lactate of 3.2. Chest x-ray was done which showed signs of a multifocal consolidation. Blood cultures were obtained and she was started on empiric antibiotics with IV Vanc and Zosyn. Discharge discussed with: patient - Time Spent with Patient Total time spent providing and/or coordinating discharge services: Greater than 30 minutes - Discharge Medications Home Medications: Naproxen [Naprosyn] 250 - 500 mg PO BID PRN 03/29/17 [History] Calcium Carbonate/Vitamin D3 [Calcium 500 + Vit D Caplet] 2 each PO DAILY #60 tablet 04/01/17 [Rx] Rizatriptan Benzoate [Maxalt] 5 mg PO Q2H PRN MDD 30mg 05/31/17 [History] Anastrozole [Arimidex] 1 mg PO DAILY #90 tablet 11/10/17 [Rx] Amitriptyline [Elavil] 50 mg PO HS 08/13/18 [History] Lisinopril [Zestril] 40 mg PO DAILY 08/13/18 [History] Metformin HCl 500 mg PO BID 08/13/18 [History] Omeprazole [PriLOSEC] 40 mg PO DAILY 08/13/18 [History] Promethazine [Phenergan] 25 mg PO Q8HR PRN 08/13/18 [History] Rosuvastatin [Crestor] 40 mg PO HS 08/13/18 [History] amLODIPine [Norvasc] 5 mg PO DAILY 08/13/18 [History] levoFLOXacin [Levaquin] 750 mg PO Q24H 10 Days #10 tablet 08/16/18 [Rx] Allergies/Adverse Reactions: 3 Allergy/AdvReac Type Severity Reaction Status Date / Time No Known Allergies Allergy Verified 08/13/18 00:17 Date of admission: 08/12/18 20:14 Primary care physician: Bakari Cottrell MD Consults: 08/14/18 14:13 Consult to Occupational Therapy [CONS] Routine Comment: Evaluate, develop and implement POC Reason for Consult: eval and treat Does patient have active BEDREST order?: No Is patient medically & hemodynamically stable?: Yes Patient assessed for mobility or mobilized this visit?: Yes Consult to Physical Therapy [CONS] Routine Comment: Evaluate, develop and implement POC Reason for Consult: eval and treat Does patient have active BEDREST order?: No Is patient medically & hemodynamically stable?: Yes Patient assessed for mobility or mobilized this visit?: Yes Consult to Audit Reviewer [CONS] Routine Reason for SW Consult: Discharge planning Discharging clinician: Jannette Monet Anticipated date of discharge: 08/16/18 - Constitutional Vitals: Temp Pulse Resp BP Pulse Ox 99.2 F 105 20 121/57 94 08/16/18 13:08 08/16/18 13:08 08/16/18 13:08 08/16/18 13:08 08/16/18 13:08 Exam: Vitals: Reviewed General: coughing, no acute distress, appears in mild to moderate pain HEENT: Dry mucous membranes. No icterus Neck: supple, no meningismus Chest: Good air entry, diffuse rhonchi and wheezing Heart: Normal S1 & S2; no MRG Abdomen: Non-distended, soft, minimal tenderness to palpation LUQ, no guarding or rebound Extremities: No clubbing, cyanosis or edema. Normal distal pulses. Neurological: Awake, alert and oriented to person, place and time. Moves all extremities actively. No dysarthria Psych: Affect appropriate. - Patient Status Disposition: Home, Self-Care Condition: Fair Overall status at discharge: patient is progressing back to baseline - Discharge Instructions Follow Up With: Garrett Judd DO [Resident] - - Diet and Activity Activity: increase activity as tolerated Diet: diabetic diet
--- NOTE | 2018-08-17 09:46 | Physician Discharge Referral ---
ExtendedCare Referral Info Provider in Charge after Transfer: PCP Institutional Level of Care: Skilled - Diagnosis (1) Severe sepsis Status: Acute (2) HCAP (healthcare-associated pneumonia) Status: Acute (3) Elevated lactic acid level Status: Acute (4) Acute on chronic kidney failure Status: Acute (5) Type II diabetes mellitus Status: Acute (6) Essential hypertension Status: Chronic (7) Breast cancer Status: Chronic (8) Hyponatremia Status: Acute - Transfer Medications Prescriptions: levoFLOXacin [Levaquin] 750 mg PO Q24H 10 Days #10 tablet Home Medications: Naproxen [Naprosyn] 250 - 500 mg PO BID PRN 03/29/17 [History] Calcium Carbonate/Vitamin D3 [Calcium 500 + Vit D Caplet] 2 each PO DAILY #60 tablet 04/01/17 [Rx] Rizatriptan Benzoate [Maxalt] 5 mg PO Q2H PRN MDD 30mg 05/31/17 [History] Anastrozole [Arimidex] 1 mg PO DAILY #90 tablet 11/10/17 [Rx] Amitriptyline [Elavil] 50 mg PO HS 08/13/18 [History] Lisinopril [Zestril] 40 mg PO DAILY 08/13/18 [History] Metformin HCl 500 mg PO BID 08/13/18 [History] Omeprazole [PriLOSEC] 40 mg PO DAILY 08/13/18 [History] Promethazine [Phenergan] 25 mg PO Q8HR PRN 08/13/18 [History] Rosuvastatin [Crestor] 40 mg PO HS 08/13/18 [History] amLODIPine [Norvasc] 5 mg PO DAILY 08/13/18 [History] levoFLOXacin [Levaquin] 750 mg PO Q24H 10 Days #10 tablet 08/16/18 [Rx] Allergies/Adverse Reactions: 3 Allergy/AdvReac Type Severity Reaction Status Date / Time No Known Allergies Allergy Verified 08/13/18 00:17 - Respiratory Orders Smoking Cessation: Smoking cessation has been advised. For more information, call the [place] Tobacco Quit Line at 6-388-JNBD-NOW. - Advance Directives Code Status: Full Code - Rehabiliation Orders Rehab Potential: Fair - Diet Orders Regular House Supplement per Dietary: diabetic CERTIFICATION: I certify that the transfer of the above named patient to an Extended Care Facility is necessary for the continuing treatment of the diagnosis listed. The above information is true and accurate reflection of patient's current condition. Confidential - Redisclosure prohibited without a patient's written consent.
== END 2018-08-16 15:44 | disposition home or self-care (01) | DRG 871 ==
LOC: 2ANU 18:35 → EMEROOARM 18:35 → 2ANU 21:15
PROVIDERS: ADMIT Internal Medicine; ATTEND Internal Medicine

== ENCOUNTER 2020-07-23 08:48 | Observation (INO) ==
[2020-07-23 09:29] LABS: Basophils # 0.1 K/mcL (0.0-0.2); Basophils % 1.7 %; Eosinophils # 0.5 K/mcL (0.0-0.6); Eosinophils % 6.2 %; Hematocrit 44.2 % (35.3-44.9); Hemoglobin 14.2 g/dL (11.5-15.4); Immature Granulocytes % 1.1 % (0-4); Lymphocytes # 2.8 K/mcL (0.6-4.6); Mean Corpuscular HGB Conc 32.1 g/dL (31.6-35.5); Mean Corpuscular Hemoglobin 28.1 pg (28.0-33.3); Mean Corpuscular Volume 87.4 fL (83.0-100.0); Mean Platelet Volume 8.6 fL (9.4-12.4); Monocytes # 0.4 K/mcL (0.0-1.3); Monocytes % 5.4 %; Neutrophils # 3.6 K/mcL (1.6-8.9); Platelet Count 320 K/mcL (140-400); Red Blood Count 5.06 M/mcL (3.82-4.97); Red Cell Distribution Width 13.8 % (11.5-14.5); Segmented Neutrophils % 48.6 %; White Blood Count 7.5 K/mcL (4.3-11.1)
[2020-07-23 09:30] LABS: Prothrombin Time 10.9 Seconds (9.4-12.1)
[2020-07-23 09:47] LABS: Alanine Aminotransferase 53 Units/L (7-52); Albumin 3.8 g/dL (3.5-5.7); Albumin/Globulin Ratio 1.4 (1.1-2.2); Alkaline Phosphatase 89 Units/L (34-104); Aspartate Amino Transferase 35 Units/L (13-39); BUN/Creatinine Ratio 21 (6-26); Bilirubin,Total 0.3 mg/dL (0.3-1.0); Blood Urea Nitrogen 26 mg/dL (8-23); Calcium 9.6 mg/dL (8.6-10.3); Carbon Dioxide 26 mEq/L (23-29); Chloride 110 mEq/L (98-107); Globulin 2.8 g/dL (2.4-3.5); Glucose 119 mg/dL (70-105); Osmolality,Calculated 298 (280-300); Potassium 4.6 mEq/L (3.5-5.1); Sodium 141 mEq/L (136-145); Total Protein 6.6 g/dL (6.4-8.9); Troponin I < 0.03 ng/mL (< 0.04); eGFR For African Americans 53 (> 60); eGFR For Non-African Americans 44 (> 60)
[2020-07-23] MEDS ORDERED: 0.9 % Sodium Chloride 1,000 ML IV ONE (10:07)
[2020-07-23] MEDS ORDERED: Acetaminophen 325 MG TABLET PO ONE (10:07)
[2020-07-23 11:29] LABS: Bilirubin,Urine Negative (Negative); Blood,Urine Trace (Negative); Clarity,Urine Clear (Clear); Color,Urine Light-Yellow (Yellow); Glucose,Urine (UA) Normal (Normal); Ketones,Urine Negative (Negative); Leukocyte Esterase,Urine Negative (Negative); Mucus,Urine Few per lpf (None-Few); Nitrite,Urine Negative (Negative); PH,Urine 6.5 pH Units (5.0-8.0); Protein,Urine 200 mg/dL (Neg-Trace); Specific Gravity,Urine 1.016 (1.010-1.025); Squamous Epithelial Cell,Urine Few per hpf (None-Few); Urobilinogen,Urine Normal (Normal); WBC,Urine 0-3 per hpf (0-3)
[2020-07-23] MEDS ORDERED: Naloxone 0.4 MG/ML INJ IVP PRN (13:10)
[2020-07-23] MEDS ORDERED: Perflutren Lipid Microsphere 1.3 ML in 0.9 % Sodium Chloride 8.7 ML IVP PRN (13:11)
[2020-07-23] MEDS ORDERED: D5% in Water 1,000 ML IVC PRN (13:12)
[2020-07-23] MEDS ORDERED: *HR* Dextrose 50 % in Water (Vial) 50 ML VIAL IVP PRN (13:12)
[2020-07-23] MEDS ORDERED: Dextrose Gel 15 GM/37.5 ML TUBE PO PRN ×2 (13:12)
[2020-07-23] MEDS: Insulin LISPRO 300 UNITS/3 ML VIAL SQ SCH ×2 (13:31→15:44)
[2020-07-23] MEDS: 0.9 % Sodium Chloride 1,000 ML IVC SCH (13:52)
[2020-07-23] MEDS ORDERED: Acetaminophen 325 MG TABLET PO PRN (14:33)
[2020-07-23] MEDS ORDERED: Aspirin 325 MG TABLET PO ONE (14:37)
[2020-07-23] MEDS: Nicotine 21 MG PATCH.TD24 TD SCH (17:41)
[2020-07-23] MEDS: *HR* Heparin 5,000 UNIT/ML VIAL SQ SCH (17:41)
[2020-07-23] MEDS ORDERED: Insulin LISPRO 300 UNITS/3 ML VIAL SQ SCH (21:00)
[2020-07-24] MEDS ORDERED: *HR* OxyCODONE Immed Rel 5 MG TABLET PO ONE (01:53)
[2020-07-24 04:40] LABS: Basophils # 0.1 K/mcL (0.0-0.2); Basophils % 1.5 %; Eosinophils # 0.3 K/mcL (0.0-0.6); Eosinophils % 3.9 %; Hemoglobin 14.7 g/dL (11.5-15.4); Immature Granulocytes % 0.9 % (0-4); Lymphocytes % 24.1 %; Mean Corpuscular HGB Conc 32.7 g/dL (31.6-35.5); Mean Corpuscular Hemoglobin 28.7 pg (28.0-33.3); Mean Corpuscular Volume 87.9 fL (83.0-100.0); Mean Platelet Volume 8.7 fL (9.4-12.4); Monocytes # 0.4 K/mcL (0.0-1.3); Monocytes % 5.1 %; Neutrophils # 5.5 K/mcL (1.6-8.9); Platelet Count 330 K/mcL (140-400); Red Blood Count 5.12 M/mcL (3.82-4.97); Red Cell Distribution Width 13.7 % (11.5-14.5); Segmented Neutrophils % 64.5 %; White Blood Count 8.5 K/mcL (4.3-11.1)
[2020-07-24 04:52] LABS: Chol/HDL Ratio 5.5 (0-4.9)
[2020-07-24 04:55] LABS: BUN/Creatinine Ratio 18 (6-26); Blood Urea Nitrogen 16 mg/dL (8-23); Calcium 9.1 mg/dL (8.6-10.3); Carbon Dioxide 20 mEq/L (23-29); Chloride 111 mEq/L (98-107); Glucose 117 mg/dL (70-105); Magnesium 1.9 mg/dL (1.6-2.6); Osmolality,Calculated 294 (280-300); Phosphorous 2.8 mg/dL (2.7-4.5); Potassium 3.7 mEq/L (3.5-5.1); Sodium 141 mEq/L (136-145); eGFR For African Americans > 60 (> 60); eGFR For Non-African Americans > 60 (> 60)
[2020-07-24] MEDS: *HR* Heparin 5,000 UNIT/ML VIAL SQ SCH (05:58)
[2020-07-24] MEDS: Insulin LISPRO 300 UNITS/3 ML VIAL SQ SCH ×2 (07:30→12:26)
[2020-07-24] MEDS: Nicotine 21 MG PATCH.TD24 TD SCH (08:13)
[2020-07-24] MEDS: Aspirin 81 MG TAB.CHEW PO SCH ×2 (08:21→08:29)
[2020-07-24] MEDS ORDERED: amLODIPine 5 MG TABLET PO SCH (09:00)
[2020-07-24] MEDS ORDERED: (Exemestane [Aromasin] 25 MG) PO SCH (09:00)
[2020-07-24 09:36] LABS: Estimated Average Glucose 148 mg/dl
[2020-07-24 11:15] VITALS: BP 153/77
[2020-07-24] MEDS: 0.9 % Sodium Chloride 1,000 ML IVC SCH (12:22)
[2020-07-30] MEDS ORDERED: Ergocalciferol (VIT D2) 50,000 UNIT (1.25MG) CAP PO SCH (09:00)
== END 2020-07-24 12:32 | disposition left against medical advice (07) ==
LOC: 3BNU 08:48 → EMEROOARM 08:48 → SUATTDRO 11:43 → 3BNU 12:05
PROVIDERS: ADMIT Student in an Organized Health Care Education/Training Program; ATTEND Internal Medicine